=== PATIENT | female | born 2000 | race Caucasian/White ===

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

== ENCOUNTER 2019-05-07 16:23 | Emergency (ER) | payer OTHER ==
--- NOTE | 2019-05-07 16:45 | ED Physician Documentation ---
History of Present Illness - Stated complaint Stated Complaint: FEMALE /VOMITING - Chief complaint Chief Complaint: Abd Pain - History obtained from History obtained from: Patient - Additonal information Additional information: Patient is a 19-year-old female presenting with about a day of diffuse abdominal pain associated with nausea and vomiting. Patient denies fever, acid reflux- like symptoms, urinary changes, stool changes, vaginal complaints including abnormal vaginal bleeding with last menstrual period earlier this month. Patient denies previous episodes similar to such. No other improving or worsening factors noted. Review of Systems Constitutional: denies: Fever GI: reports: Abdominal Pain. 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 : None HEENT: None Psych: None, ADD/ADHD Musculoskeletal: Chronic back pain Derm: None - Past Surgical History Past Surgical History: No - Present Medications Home Medications: Ambulatory Orders Medication Instructions Recorded Confirmed Hydrocodone/Acetaminophen [[place] 1 each PO Q6H PRN #20 tablet 11/08/18 5-325 Tablet] Ibuprofen 400 mg PO PRN 11/08/18 Naproxen 500 mg PO BID #20 tablet 11/08/18 Norethindrone AC-Eth Estradiol 1 each PO DAILY #1 packet 11/08/18 [Loestrin 21 1-20 Tablet] Ondansetron Odt [Zofran] 4 mg TL Q6H PRN #10 tablet 11/08/18 Ciprofloxacin [Cipro] 500 mg PO BID 7 Days ml 05/07/19 - Allergies Allergies/Adverse Reactions: Allergies Allergy/AdvReac Type Severity Reaction Status Date / Time No Known Drug Allergies Allergy Verified 05/07/19 16:32 - Social History Does the pt smoke?: Yes Smoking Status: Current every day smoker Does the pt drink ETOH?: No Does the pt have substance abuse?: No - Immunizations Immunizations are current?: Yes - POLST Patient has POLST: No PD ED PE NORMAL - Vitals Vital signs reviewed: Yes - General General: Alert and oriented X 3, No acute distress, Well developed/nourished - HEENT HEENT: Atraumatic, Moist mucous membranes - Cardiac Cardiac: RRR, No murmur - Respiratory Respiratory: No respiratory distress, Clear bilaterally - Abdomen Abdomen: Normal bowel sounds, Soft, Non distended. No: Non tender (Diffusely tender) - Derm Derm: Normal color, Warm and dry - Extremities Extremities: No deformity, No tenderness to palpate - Neuro Neuro: Alert and oriented X 3, No motor deficit, No sensory deficit - Psych Psych: Normal affect Results - Vitals Vitals: Vital Signs - 24 hr 05/07/19 05/07/19 16:29 19:16 Temperature 36.4 C L 37.1 C Heart Rate 64 63 Respiratory 24 16 Rate Blood Pressure 114/75 95/55 L O2 Saturation 99 99 Oxygen O2 Source Room air - Labs Labs: Laboratory Tests 05/07/19 05/07/19 05/07/19 17:10 17:19 17:19 WBC 13.8 H RBC 4.83 Hgb 15.0 Hct 42.1 MCV 87.2 MCH 31.1 H MCHC 35.6 RDW 11.9 L Plt Count 195 MPV 11.3 H Neut # (Auto) 11.3 H Lymph # (Auto) 1.4 L [place] # (Auto) 0.8 Eos # (Auto) 0.1 Baso # (Auto) 0.1 Absolute Nucleated RBC 0.00 Nucleated RBC % 0.0 Sodium 140 Potassium 3.8 Chloride 105 Carbon Dioxide 23 Anion Gap 12.0 BUN 17 Creatinine 0.8 Estimated GFR (MDRD) 91 Glucose 95 Calcium 9.9 Total Bilirubin 0.4 AST 17 ALT 14 Alkaline Phosphatase 69 Total Protein 7.7 Albumin 4.8 Globulin 2.9 Albumin/Globulin Ratio 1.7 Lipase 26 Urine Color YELLOW Urine Clarity HAZY Urine pH 7.5 Ur Specific [place] 1.015 Urine Protein NEGATIVE Urine Glucose (UA) NEGATIVE Urine Ketones NEGATIVE Urine Occult Blood NEGATIVE Urine Nitrite NEGATIVE Urine Bilirubin NEGATIVE Urine Urobilinogen 0.2 (NORMAL) Ur Leukocyte Esterase TRACE H Urine RBC None Seen Urine WBC 0-3 Ur Squamous Epith Cells MANY Squamous H Urine Bacteria Many H Ur Microscopic Review INDICATED Urine Culture Comments NOT INDICATED Urine HCG, Qual NEGATIVE PD MEDICAL DECISION MAKING - ED course Complexity details: reviewed old records, reviewed results, re-evaluated patient, considered differential, d/w patient ED course: Patient presenting with diffuse abdominal pain with nausea and vomiting, although denies GERD-like symptoms. Concerning etiologies including GERD, PUD, gastritis, appendicitis, gallbladder disease, diverticulitis, small bowel obstruction, although have low suspicion for such. Also feel that renal pathology, UTI, pelvic pathology much less likely, particularly given lack of pelvic and vaginal complaints. Patient started on IV fluid as well as nausea and pain medication. Screening lab work returned relatively unremarkable except for mild leukocytosis. Urinalysis had trace leukocyte esterase, but many squamous cells and do not feel this is truly an infection, but likely contaminated sample. Patient also denying urinary symptoms and do not feel she requires in antibiotics for UTI at this time. CT abdomen/pelvis obtained which found evidence of a right adnexal cyst, as well as changes of enteritis. Feel appropriate to prescribe ciprofloxacin for enteritis. Otherwise, feel that patient can be treated as an outpatient with supportive cares, return precautions, primary care follow-up. Departure - Departure Disposition: 01 Home, Self Care Clinical Impression: Enteritis Ovarian cyst Qualifiers: Laterality: right Qualified Code(s): N83.201 - Unspecified ovarian cyst, right side Condition: Good Instructions: ED Food Poison Or Gastroenteritis, ED Cyst Ovarian Follow-Up: SONYA NICOLE DO [Primary Care Provider] - Prescriptions: Ciprofloxacin [Cipro] 500 mg PO BID 7 Days ml Comments: Recommend hydration with Powerade/Gatorade, bland diet advancing as tolerated. Ibuprofen/Tylenol as needed. Follow-up with primary care physician next 2 to 3 days. Please take antibiotics as otherwise prescribed to help treat gastroenteritis changes as found on CAT scan. Recommend taking antibiotics with small amount of food to avoid upset stomach.To ED sooner if experience worsening symptoms or have other concerns.
[2019-05-07] MEDS ORDERED: DICYCLOMINE 10 MG CAPSULE PO STA (17:01)
[2019-05-07] MEDS ORDERED: ONDANSETRON 4 MG/2 ML VIAL IVP STA (17:01)
[2019-05-07] MEDS ORDERED: SODIUM CHLORIDE 0.9% 1,000 ML IV ONE (17:01)
[2019-05-07 17:28] LABS: BASOPHILS # (AUTO) 0.1 10^3/uL (0.0-0.1); BASOPHILS % (AUTO) 0.4 %; EOSINOPHILS # (AUTO) 0.1 10^3/uL (0.0-0.7); LYMPHOCYTES # (AUTO) 1.4 10^3/uL (1.5-3.5); LYMPHOCYTES % (AUTO) 10.3 %; MEAN CORPUSCULAR HEMOGLOBIN 31.1 pg (27.0-31.0); MEAN CORPUSCULAR HGB CONC 35.6 g/dL (32.0-36.0); MEAN CORPUSCULAR VOLUME 87.2 fL (81.0-99.0); MEAN PLATELET VOLUME 11.3 fL (7.9-10.8); MONOCYTES # (AUTO) 0.8 10^3/uL (0.0-1.0); MONOCYTES % (AUTO) 5.4 %; NEUTROPHILS # (AUTO) 11.3 10^3/uL (1.5-6.6); NEUTROPHILS % (AUTO) 82.2 %; PLT - PLATELET COUNT 195 10^3/uL (130-450); RED BLOOD COUNT 4.83 10^6/uL (4.20-5.40); RED CELL DISTRIBUTION WIDTH 11.9 % (12.0-15.0); WHITE BLOOD COUNT 13.8 x10^3/uL (4.8-10.8)
[2019-05-07 17:29] LABS: BILIRUBIN,URINE NEGATIVE (NEGATIVE); GLUCOSE, URINE (UA) NEGATIVE (NEGATIVE); KETONES,URINE (UA) NEGATIVE (NEGATIVE); LEUKOCYTE ESTERASE, URINE TRACE (NEGATIVE); NITRITE,URINE NEGATIVE (NEGATIVE); OCCULT BLOOD,URINE NEGATIVE (NEGATIVE); PH,URINE 7.5 PH (5.0-7.5); PROTEIN,URINE NEGATIVE (NEGATIVE); UROBILINOGEN,URINE 0.2 (NORMAL) E.U./dL (NORMAL)
[2019-05-07 17:33] LABS: CLARITY,URINE HAZY (CLEAR); HCG UR QUAL NEGATIVE
[2019-05-07 17:38] LABS: ALBUMIN 4.8 g/dL (3.2-5.5); ALBUMIN/GLOBULIN RATIO 1.7 (1.0-2.2); BILIRUBIN,TOTAL 0.4 mg/dL (0.2-1.0); CALCIUM 9.9 mg/dL (8.5-10.3); CREATININE 0.8 mg/dL (0.4-1.0); TOTAL PROTEIN 7.7 g/dL (6.7-8.2)
[2019-05-07 17:39] LABS: BACTERIA,URINE Many /HPF (None Seen); RBC,URINE None Seen /HPF (0-5); SQUAMOUS EPITHELIAL CELL,UR MANY Squamous (<= Few)
[2019-05-07] MEDS ORDERED: IOVERSOL 320 100 ML VIAL IVP ONE ×2 (18:10→18:35)
--- NOTE | 2019-05-07 18:59 | CT Report ---
Reason: diffuse pain with nausea and vomiting Procedure Date: 05/07/2019 Accession Number: [id number] / [id number] Procedure: CT - Abdomen/Pelvis W CPT Code: FULL RESULT: EXAM: CT ABDOMEN AND PELVIS EXAM DATE: 05/07/2019 06:33 PM. CLINICAL HISTORY: Diffuse pain with nausea and vomiting. COMPARISONS: ABDOMEN/PELVIS W/ 10/14/2015 5:05 PM. TECHNIQUE: Routine helical CT imaging was performed through the abdomen and pelvis. IV contrast: OPTI 320 80 mL. Enteric contrast: No. Reconstructions: Coronal and sagittal. In accordance with CT protocol optimization, one or more of the following dose reduction techniques were utilized for this exam: automated exposure control, adjustment of mA and/or KV based on patient size, or use of iterative reconstructive technique. FINDINGS: Lung Bases: Unremarkable. Liver: Mild periportal edema. Otherwise unremarkable. Gallbladder/Bile Ducts: Unremarkable. Spleen: Normal. Pancreas: Normal. Adrenal Glands: Normal. Kidneys: No hydronephrosis or nephrolithiasis. Probable 4 mm cortical cyst in the lower pole of the left kidney. Peritoneal Cavity/Bowel: Nonobstructive bowel gas pattern. Nonspecific fluid-filled small bowel loops in the lower abdomen measuring up to 2.4 cm in diameter. These bowel loops demonstrate increased mucosal enhancement. The appendix is normal measuring up to 5.5 mm in diameter. Small volume ascites in the pelvis. No free intraperitoneal air. Pelvic Organs: There is a collapsed, rim-enhancing cyst in the right adnexa measuring 0.6 x 1.3 cm (image 24 of series 5). The left ovary is unremarkable. Uterus and urinary bladder are also unremarkable. Vasculature: No aneurysms or acute abnormality. Possible circumaortic left renal vein. Bones: No acute abnormality. Other: None. IMPRESSION: Collapsed, rim-enhancing cyst in the right adnexa, which may represent a recently ruptured hemorrhagic cyst. Small volume ascites in the pelvis. Pelvis ultrasound may further characterize if needed. Nonspecific fluid-filled, nondilated small bowel loops in the lower abdomen with increased mucosal enhancement. This could be secondary to an infectious or inflammatory enteritis. RADIA
[2019-05-07 19:17] VITALS: BP 95/55
== END 2019-05-07 19:34 | disposition home or self-care (01) ==
LOC: ED 16:23
DX: K52.9 Noninfective gastroenteritis and colitis, unspecified (principal); N83.201 Unspecified ovarian cyst, right side; F17.200 Nicotine dependence, unspecified, uncomplicated
CPT/HCPCS: 36415; 74177; 80053; 81001; 81025; 83690; 85025; 96361; 96374; 99284; A9270; Q9967; 81003; 87086

== ENCOUNTER 2019-07-13 16:28 | Emergency (ER) | payer OTHER ==
[2019-07-13 16:33] VITALS: BP 117/81
[2019-07-13] MEDS ORDERED: LORazepam 1 MG TABLET PO STA (16:49)
--- NOTE | 2019-07-13 16:51 | ED Physician Documentation ---
History of Present Illness - Stated complaint Stated Complaint: FIT FOR [facility]PC - Chief complaint Chief Complaint: General - History obtained from History obtained from: Patient, Police - History of Present Illness Timing: Today - Additonal information Additional information: 19-year-old female with a history of panic attack and anxiety has developed panic attack over the last 2 hours and she is picked up by police in the middle of a panic attack. She has been taking some buspirone without improvement in her frequency of panic attacks and has an appointment to follow-up with her primary care doctor next week. She is having some hyperventilation with numbness to her fingertips around her lips and toes as well as some pain coming across her chest. She denies recent or current illness. Review of Systems Constitutional: denies: Fever Eyes: denies: Decreased vision Ears: denies: Ear pain Nose: denies: Rhinorrhea / runny nose, Congestion Throat: denies: Sore throat Cardiac: reports: Chest pain / pressure. denies: Palpitations, Pedal edema, Calf pain Respiratory: reports: Dyspnea. denies: Cough, Hemoptysis, Wheezing GI: reports: Nausea. denies: Abdominal Pain, Vomiting : denies: Dysuria, Frequency PD PAST MEDICAL HISTORY - Past Medical History Cardiovascular: None Respiratory: None Neuro: None Endocrine/Autoimmune: None GI: None HIDE SELECTOR: None : None HEENT: None Psych: None, ADD/ADHD Musculoskeletal: Chronic back pain Derm: None - Past Surgical History Past Surgical History: No - Present Medications Home Medications: Ambulatory Orders Medication Instructions Recorded Confirmed Hydrocodone/Acetaminophen [[place] 1 each PO Q6H PRN #20 tablet 11/08/18 5-325 Tablet] Ibuprofen 400 mg PO PRN 11/08/18 Naproxen 500 mg PO BID #20 tablet 11/08/18 Norethindrone AC-Eth Estradiol 1 each PO DAILY #1 packet 11/08/18 [Loestrin 21 1-20 Tablet] Ondansetron Odt [Zofran] 4 mg TL Q6H PRN #10 tablet 11/08/18 Ciprofloxacin [Cipro] 500 mg PO BID 7 Days ml 05/07/19 Lorazepam [Ativan] 1 mg PO Q6HR PRN #14 tablet 07/13/19 - Allergies Allergies/Adverse Reactions: Allergies Allergy/AdvReac Type Severity Reaction Status Date / Time No Known Drug Allergies Allergy Verified 07/13/19 16:29 - Social History Does the pt smoke?: Yes Smoking Status: Current every day smoker Does the pt drink ETOH?: No Does the pt have substance abuse?: No - Immunizations Immunizations are current?: Yes - POLST Patient has POLST: No PD ED PE NORMAL - Vitals Vital signs reviewed: Yes (tachpneic and hypertensive mild diastolic ) - General General: Alert and oriented X 3, Well developed/nourished, Other (appears anxious and is hyperventilating ) - HEENT HEENT: Atraumatic, PERRL, EOMI, Other (both TM's are flush mucous membranes are dry) - Neck Neck: Supple, no meningeal sign, No bony TTP - Cardiac Cardiac: RRR, No murmur - Respiratory Respiratory: Other (tachypneic) - Abdomen Abdomen: Soft, Non tender - Back Back: No CVA TTP, No spinal TTP - Derm Derm: Normal color, Warm and dry, No rash - Extremities Extremities: No deformity, No edema - Neuro Neuro: Alert and oriented X 3, 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, No motor deficit, No sensory deficit, Normal speech Eye Opening: Spontaneous Motor: Obeys Commands Verbal: Oriented GCS Score: 15 - Psych Psych: Normal affect, Other (mood is anxious) Results - Vitals Vitals: Vital Signs - 24 hr 07/13/19 16:29 Temperature 37 C Heart Rate 88 Respiratory 22 Rate Blood Pressure 117/81 H O2 Saturation 98 Oxygen O2 Source Room air PD MEDICAL DECISION MAKING - ED course Complexity details: reviewed old records, considered differential, d/w patient ED course: 19-year-old female with a history of panic attacks is having anxiety here in the emergency department she is hyperventilating and she is administered Ativan 1 mg orally. She is given a fit for confinement and may need additional Ativan while she is in senior care. Departure - Departure Disposition: 01 Home, Self Care Clinical Impression: Hyperventilation syndrome Condition: Stable Instructions: ED Panic Attack Follow-Up: SONYA NICOLE DO [Primary Care Provider] - Prescriptions: Lorazepam [Ativan] 1 mg PO Q6HR PRN #14 tablet PRN Reason: anixety Discharge Date/Time: 07/13/19 16:57
== END 2019-07-13 16:57 | disposition home or self-care (01) ==
LOC: ED 16:28
DX: F45.8 Other somatoform disorders (principal); F41.0 Panic disorder [episodic paroxysmal anxiety]; F17.200 Nicotine dependence, unspecified, uncomplicated
CPT/HCPCS: 99282; 99284; J8499

== ENCOUNTER 2019-09-30 19:43 | Emergency (ER) | payer OTHER ==
[2019-09-30 20:13] LABS: BASOPHILS % (AUTO) 0.4 %; EOSINOPHILS # (AUTO) 0.2 10^3/uL (0.0-0.7); EOSINOPHILS % (AUTO) 1.8 %; LYMPHOCYTES # (AUTO) 0.9 10^3/uL (1.5-3.5); LYMPHOCYTES % (AUTO) 8.4 %; MEAN CORPUSCULAR HEMOGLOBIN 31.1 pg (27.0-31.0); MEAN CORPUSCULAR HGB CONC 34.7 g/dL (32.0-36.0); MEAN CORPUSCULAR VOLUME 89.4 fL (81.0-99.0); MEAN PLATELET VOLUME 10.4 fL (7.9-10.8); MONOCYTES # (AUTO) 0.5 10^3/uL (0.0-1.0); MONOCYTES % (AUTO) 4.4 %; NEUTROPHILS # (AUTO) 9.2 10^3/uL (1.5-6.6); NEUTROPHILS % (AUTO) 84.6 %; PLT - PLATELET COUNT 241 10^3/uL (130-450); RED BLOOD COUNT 4.83 10^6/uL (4.20-5.40); RED CELL DISTRIBUTION WIDTH 11.7 % (12.0-15.0); WHITE BLOOD COUNT 10.8 x10^3/uL (4.8-10.8)
[2019-09-30 20:23] LABS: BILIRUBIN,URINE NEGATIVE (NEGATIVE); GLUCOSE, URINE (UA) NEGATIVE (NEGATIVE); KETONES,URINE (UA) NEGATIVE (NEGATIVE); LEUKOCYTE ESTERASE, URINE NEGATIVE (NEGATIVE); NITRITE,URINE NEGATIVE (NEGATIVE); OCCULT BLOOD,URINE NEGATIVE (NEGATIVE); PH,URINE 8.5 PH (5.0-7.5); PROTEIN,URINE NEGATIVE (NEGATIVE); UROBILINOGEN,URINE 0.2 (NORMAL) E.U./dL (NORMAL)
[2019-09-30 20:26] LABS: ALBUMIN 4.5 g/dL (3.2-5.5); ALBUMIN/GLOBULIN RATIO 1.8 (1.0-2.2); BILIRUBIN,TOTAL 0.6 mg/dL (0.2-1.0); CALCIUM 8.9 mg/dL (8.5-10.3); CREATININE 0.7 mg/dL (0.4-1.0)
[2019-09-30 20:34] LABS: AMORPHOUS SEDIMENT,UR Moderate /LPF; BACTERIA,URINE None Seen /HPF (None Seen); CLARITY,URINE CLOUDY (CLEAR); HCG UR QUAL NEGATIVE; RBC,URINE None Seen /HPF (0-5); SQUAMOUS EPITHELIAL CELL,UR FEW Squamous (<= Few)
[2019-09-30] MEDS ORDERED: MORPHINE 2 MG/ML CARPUJECT IVP STA (20:48)
[2019-09-30] MEDS ORDERED: KETOROLAC 30 MG/ML VIAL IVP STA (20:48)
[2019-09-30] MEDS ORDERED: ONDANSETRON 4 MG/2 ML VIAL IVP STA (20:48)
[2019-09-30] MEDS ORDERED: SODIUM CHLORIDE 0.9% 1,000 ML IV ONE (20:48)
[2019-09-30] MEDS ORDERED: LACTATED RINGERS 1,000 ML IV STA (20:49)
--- NOTE | 2019-09-30 20:53 | ED Physician Documentation ---
PD HPI ABD PAIN - Stated complaint Stated Complaint: BACK PAIN, VOMITTING - Chief complaint Chief Complaint: Back Pain - History obtained from History obtained from: Patient, Family (mom) - History of Present Illness Timing - onset: Other (She has been ill for 3 days with vomiting, diarrhea, severe abdominal pain and right-sided back pain. No urinary complaints. No sick contacts. She had fevers on the first 2 days's which have defervesced. She also has body aches and chills. No recent travel.) Review of Systems Ten Systems: 10 systems reviewed and negative Constitutional: reports: Fever, Chills, Myalgias, Fatigue Ears: denies: Drainage/discharge Nose: denies: Rhinorrhea / runny nose Throat: denies: Sore throat Cardiac: denies: Chest pain / pressure, Palpitations GI: reports: Abdominal Pain, Nausea, Vomiting, Diarrhea. 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 : None HEENT: None Psych: None, ADD/ADHD Musculoskeletal: Chronic back pain Derm: None - Past Surgical History Past Surgical History: No - Present Medications Home Medications: Ambulatory Orders Medication Instructions Recorded Confirmed Hydrocodone/Acetaminophen [[place] 1 each PO Q6H PRN #20 tablet 11/08/18 5-325 Tablet] Ibuprofen 400 mg PO PRN 11/08/18 Naproxen 500 mg PO BID #20 tablet 11/08/18 Norethindrone AC-Eth Estradiol 1 each PO DAILY #1 packet 11/08/18 [Loestrin 21 1-20 Tablet] Ondansetron Odt [Zofran] 4 mg TL Q6H PRN #10 tablet 11/08/18 Ciprofloxacin [Cipro] 500 mg PO BID 7 Days ml 05/07/19 Lorazepam [Ativan] 1 mg PO Q6HR PRN #14 tablet 07/13/19 - Allergies Allergies/Adverse Reactions: Allergies Allergy/AdvReac Type Severity Reaction Status Date / Time No Known Drug Allergies Allergy Verified 07/13/19 16:29 - Social History Does the pt smoke?: Yes Smoking Status: Current every day smoker Does the pt drink ETOH?: No Does the pt have substance abuse?: No - Immunizations Immunizations are current?: Yes - POLST Patient has POLST: No PD ED PE NORMAL - Vitals Vital signs reviewed: Yes - General General: Alert and oriented X 3, Other (She appears uncomfortable, prefers to lay right decubitus) - HEENT HEENT: PERRL, EOMI - Neck Neck: Supple, no meningeal sign, No bony TTP - Cardiac Cardiac: RRR, No murmur - Respiratory Respiratory: No respiratory distress, Clear bilaterally - Abdomen Abdomen: Other (Significant right-sided abdominal tenderness without surgical signs; Hyperactive bowel tones) - Back Back: No CVA TTP, No spinal TTP - Derm Derm: Normal color, Warm and dry, No rash - Extremities Extremities: No edema, No calf tenderness / cord - Neuro Neuro: Alert and oriented X 3, Normal speech Results - Vitals Vitals: Vital Signs - 24 hr 09/30/19 09/30/19 09/30/19 19:51 21:00 22:52 Temperature 36.3 C L Heart Rate 76 73 59 L Respiratory 24 18 16 Rate Blood Pressure 102/68 98/66 91/57 L O2 Saturation 100 100 98 Oxygen O2 Source Room air - Labs Labs: Laboratory Tests 09/30/19 09/30/19 09/30/19 20:05 20:05 20:13 WBC 10.8 RBC 4.83 Hgb 15.0 Hct 43.2 MCV 89.4 MCH 31.1 H MCHC 34.7 RDW 11.7 L Plt Count 241 MPV 10.4 Neut # (Auto) 9.2 H Lymph # (Auto) 0.9 L [place] # (Auto) 0.5 Eos # (Auto) 0.2 Baso # (Auto) 0.0 Absolute Nucleated RBC 0.00 Nucleated RBC % 0.0 Sodium 139 Potassium 3.5 Chloride 105 Carbon Dioxide 26 Anion Gap 8.0 BUN 12 Creatinine 0.7 Estimated GFR (MDRD) 107 Glucose 101 H Calcium 8.9 Total Bilirubin 0.6 AST 16 ALT 15 Alkaline Phosphatase 64 Total Protein 7.0 Albumin 4.5 Globulin 2.5 Albumin/Globulin Ratio 1.8 Lipase 30 Urine Color LT. YELLOW Urine Clarity CLOUDY Urine pH 8.5 H Ur Specific [place] 1.015 Urine Protein NEGATIVE Urine Glucose (UA) NEGATIVE Urine Ketones NEGATIVE Urine Occult Blood NEGATIVE Urine Nitrite NEGATIVE Urine Bilirubin NEGATIVE Urine Urobilinogen 0.2 (NORMAL) Ur Leukocyte Esterase NEGATIVE Urine RBC None Seen Urine WBC 0-3 Ur Squamous Epith Cells FEW Squamous Amorphous Sediment Moderate Urine Bacteria None Seen Ur Microscopic Review INDICATED Urine Culture Comments NOT INDICATED Urine HCG, Qual NEGATIVE PD MEDICAL DECISION MAKING - ED course ED course: This young lady has a syndrome that sounds mostly viral, seated with fevers and chills and body aches and now more vomiting and diarrhea and abd pain. The abdominal pain seems out of proportion to the rest of the illness. However review of the chart and personal experience shows that she has somewhat exaggerated pain behaviors. She was administered some morphine Toradol and nausea medicine. She claims she was not feeling any better. However then after I ordered some ofirmev and Phenergan she refused to the ofirmev and refused to go to CT until she had more morphine. I discussed with her that she said she was not getting any relief from the morphine, but then she said it was better than the acetaminophen which she had not yet tried. I discussed with her that I was not willing to give her any more narcotics for what seemed like a viral syndrome until further testing was done. She agreed to go to CT but immediately on return from CT demanded to leave AGAINST MEDICAL ADVICE. I discussed with her that I would not generally discharge people without a CT read. I did not see anything obvious on the CT but it had not been reviewed by radiology and she wanted to go AGAINST MEDICAL ADVICE. 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 Departure - Departure Disposition: 07 Against Medical Advice Clinical Impression: Abdominal pain Qualifiers: Abdominal location: generalized Qualified Code(s): R10.84 - Generalized abdominal pain Condition: Stable Discharge Date/Time: 09/30/19 23:28
[2019-09-30] MEDS ORDERED: PROMETHAZINE INJ 25 MG in SODIUM CHLORIDE 0.9% 50 ML IV STA (21:52)
[2019-09-30] MEDS ORDERED: IOVERSOL 320 100 ML VIAL IVP ONE ×2 (21:52→23:17)
[2019-09-30] MEDS ORDERED: ACETAMINOPHEN 1,000 MG/100 ML 100 ML IV STA (21:52)
[2019-09-30 22:52] VITALS: BP 91/57
[2019-09-30] MEDS ORDERED: METOCLOPRAMIDE 10 MG/2 ML VIAL IVP STA (23:14)
[2019-09-30] MEDS ORDERED: ONDANSETRON ODT 4 MG Prepack 2 TL STA (23:14)
--- NOTE | 2019-09-30 23:29 | CT Report ---
Reason: IV only R abd pain Procedure Date: 09/30/2019 Accession Number: [id number] / [id number] Procedure: CT - Abdomen/Pelvis W CPT Code: Final Report FULL RESULT: EXAM: CT ABDOMEN AND PELVIS EXAM DATE:09/30/2019 11:14 PM CLINICAL HISTORY: IV only R abd pain. Nausea, vomiting, and diarrhea for 3 days. COMPARISONS: ABDOMEN/PELVIS W/ 05/07/2019 6:22 PM. TECHNIQUE: Routine helical CT imaging was performed through the abdomen and pelvis with 100 ML OPTIRAY 320 IV contrast. Oral contrast: No. Reconstructions: Coronal and sagittal. In accordance with CT protocol optimization, one or more of the following dose reduction techniques were utilized for this exam: automated exposure control, adjustment of mA and/or KV based on patient size, or use of iterative reconstructive technique. FINDINGS: Lung Bases: Clear lung bases. No pleural effusion. Liver: Normal. Gallbladder/Bile Ducts: Normal. Spleen: Normal. Pancreas: Normal. Adrenal Glands: Normal. Kidneys: Normal. No hydronephrosis. Stable 5 mm left inferior pole low-density lesion, which may reflect a cyst. Peritoneal Cavity/Bowel: Normal contour and caliber of the bowel. No free fluid, free air or lymphadenopathy. The appendix is not visualized; however, no inflammatory changes at the base of the cecum. Pelvic Organs: Normal. The bladder and visualized pelvic organs appear normal. Trace amount of physiologic free fluid in the deep pelvis. Vasculature: Normal. Bones: Normal. Other: None. IMPRESSION: Normal CT examination of the abdomen and pelvis. No acute process seen in the abdomen or pelvis. RADIA
== END 2019-09-30 23:28 | disposition left against medical advice (07) ==
LOC: ED 19:43
DX: R10.84 Generalized abdominal pain (principal); R11.2 Nausea with vomiting, unspecified; R19.7 Diarrhea, unspecified; F17.200 Nicotine dependence, unspecified, uncomplicated; Z53.20 Procedure and treatment not carried out because of patient's decision for unspecified reasons
CPT/HCPCS: 36415; 74177; 80053; 81001; 81025; 83690; 85025; 96361; 96365; 96368; 96375; 99284; 99285; J0131; J2765; J7040; J7120; Q9967; 81003; 87086

== ENCOUNTER 2020-09-21 11:14 | Emergency (ER) | payer SELFPAY ==
[2020-09-21 11:20] VITALS: BP 130/86
[2020-09-21] MEDS ORDERED: cephALEXin 250 MG CAPSULE PO STA (11:38)
[2020-09-21] MEDS ORDERED: IBUPROFEN 600 MG TABLET PO STA (11:38)
[2020-09-21] MEDS ORDERED: SULFAMETH/TRIMETH DS 800/160 MG TABLET PO STA (11:38)
--- NOTE | 2020-09-21 11:41 | ED Physician Documentation ---
History of Present Illness - Stated complaint Stated Complaint: JAW PX - Chief complaint Chief Complaint: Wound - History obtained from History obtained from: Patient - History of Present Illness Timing: How many days ago (2) Pain level max: 5 Pain level now: 4 - Additonal information Additional information: 20-year-old female presents to the emergency department stating that she had a pustule on her chin that she tried to express. She states now her chin is red and swollen. Nothing makes it better or worse. No fevers. No difficulty eating or swallowing. 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 : None HEENT: None Psych: None, ADD/ADHD Musculoskeletal: Chronic back pain Derm: None - Past Surgical History Past Surgical History: No - Present Medications Home Medications: Ambulatory Orders Medication Instructions Recorded Confirmed Cephalexin [Keflex] 500 mg PO Q6H #28 capsule 09/21/20 Sulfamethox/Trimeth 800/160 1 each PO BID #14 tablet 09/21/20 [Bactrim Ds 800/160] - Allergies Allergies/Adverse Reactions: Allergies Allergy/AdvReac Type Severity Reaction Status Date / Time No Known Drug Allergies Allergy Verified 09/21/20 11:20 - Social History Does the pt smoke?: Yes Smoking Status: Current every day smoker Does the pt drink ETOH?: No Does the pt have substance abuse?: No - Immunizations Immunizations are current?: Yes - POLST Patient has POLST: No PD ED PE NORMAL - Vitals Vital signs reviewed: Yes - General General: Alert and oriented X 3, No acute distress - HEENT HEENT: Moist mucous membranes, Other (erythema to the chin, mild swelling, no fluctuance. no drainage. ) - Neck Neck: Supple, no meningeal sign - Derm Derm: Warm and dry - Neuro Neuro: Alert and oriented X 3 - Psych Psych: Normal mood, Normal affect Results - Vitals Vitals: Vital Signs - 24 hr 09/21/20 11:19 Temperature 36.0 C L Heart Rate 111 H Respiratory 20 Rate Blood Pressure 130/86 H O2 Saturation 100 Oxygen O2 Source Room air PD MEDICAL DECISION MAKING - ED course Complexity details: considered differential, d/w patient ED course: Patient with what appears to be cellulitis of the chin. No drainable abscess. We will place her on antibiotics and have her follow-up closely with her doctor for further care. No crepitus. No spread down the neck. Patient counseled regarding signs and symptoms for which I believe and urgent re-evaluation would be necessary. Patient with good understanding of and agreement to plan and is comfortable going home at this time This document was made in part using voice recognition software. While efforts are made to proofread this document, sound alike and grammatical errors may occur. Departure - Departure Disposition: Home, Self Care Clinical Impression: Facial cellulitis Condition: Good Instructions: ED Cellulitis Facial Follow-Up: your,doctor in 3 days for recheck [Other] Prescriptions: Sulfamethox/Trimeth 800/160 [Bactrim Ds 800/160] 1 each PO BID #14 tablet Cephalexin [Keflex] 500 mg PO Q6H #28 capsule Comments: Use the antibiotics as prescribed. You can use Motrin or Tylenol as needed for pain. Return if you worsen. Discharge Date/Time: 09/21/20 11:51
== END 2020-09-21 11:51 | disposition home or self-care (01) ==
LOC: ED 11:14
DX: L03.211 Cellulitis of face (principal); F17.200 Nicotine dependence, unspecified, uncomplicated
CPT/HCPCS: 99282; 99284; A9270

== ENCOUNTER 2020-09-23 14:00 | Emergency (ER) | payer SELFPAY ==
[2020-09-23 14:12] VITALS: BP 119/62
--- NOTE | 2020-09-23 14:40 | ED Physician Documentation ---
History of Present Illness - Stated complaint Stated Complaint: LIGHTHEADED/HAND SWELLING - Chief complaint Chief Complaint: General - History obtained from History obtained from: Patient - Additonal information Additional information: Seen here 2 Days ago for facial cellulitis on the chin. She was put on Bactrim and Keflex. It has not really gotten better, but it has not gotten worse either. Just is sort of lingering. She also complains of pain from the last maxillary molar. No fevers. 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 09/23/20 - Allergies Allergies/Adverse Reactions: Allergies Allergy/AdvReac Type Severity Reaction Status Date / Time No Known Drug Allergies Allergy Verified 09/23/20 14:09 - Social History Does the pt smoke?: Yes Smoking Status: Current every day smoker Does the pt drink ETOH?: No Does the pt have substance abuse?: No - Immunizations Immunizations are current?: Yes - POLST Patient has POLST: No PD ED PE NORMAL - Vitals Vital signs reviewed: Yes - General General: Alert and oriented X 3 - HEENT HEENT: Other (She has assertive impetiginous cellulitis that is weeping to the central chin. No fluctuance or abscess. She has generally poor dentition, no obvious active dental infection, no trismus or sublingual edema.) - Neuro Neuro: Alert and oriented X 3, Normal speech Results - Vitals Vitals: Vital Signs - 24 hr 09/23/20 14:09 Temperature 36.9 C Heart Rate 100 Respiratory 16 Rate Blood Pressure 119/62 O2 Saturation 99 Oxygen O2 Source Room air Departure - Departure Disposition: 01 Home, Self Care Clinical Impression: Facial cellulitis, Dental infection Condition: Good Record reviewed to determine appropriate education?: Yes Instructions: ED Cellulitis Facial, Dental Abscess Prescriptions: Clindamycin [Cleocin] 300 mg PO Q6H 10 Days capsule Mupirocin Calcium [Mupirocin] 1 gm TP TID #2 cream..g. HYDROcod/ACETAM 5/325 [[place] 5/325] 1 - 2 tab PO Q6H PRN #10 tablet PRN Reason: Pain Comments: I would change the antibiotic from what Dr. Smith gave you the other day since it does not seem to be working. Follow-up with your primary care physician in the next couple of days for recheck. Also add the topical antibiotic. It is very important that you follow-up with a dentist. When it comes to dental problems like yours, the emergency department can only offer a short-term solution to your long-term problem. A couple of low cost options for dental care include: [facility] in [place], calls [phone] for an appointment Or [facility] in [place], call [phone] for an appointment.
== END 2020-09-23 14:49 | disposition home or self-care (01) ==
LOC: ED 14:00
DX: L03.211 Cellulitis of face (principal); K04.7 Periapical abscess without sinus; F17.200 Nicotine dependence, unspecified, uncomplicated
CPT/HCPCS: 99283

== ENCOUNTER 2020-12-20 11:56 | Emergency (ER) | payer SELFPAY ==
[2020-12-20] MEDS ORDERED: LIDOCAINE VISCOUS 2% 15 ML UDC MM STA (12:18)
[2020-12-20] MEDS ORDERED: MAG HYDROX/AL HYDROX/SIMETH 30 ML UDC PO STA (12:21)
--- NOTE | 2020-12-20 12:31 | ED Physician Documentation ---
History of Present Illness - Stated complaint Stated Complaint: CHEST PX/ L ARM PX - Chief complaint Chief Complaint: Cardiac - Additonal information Additional information: 20-year-old female presents emergency department for evaluation of 2 days left- sided chest pain with radiation to the arm. Reports that sometimes the chest pain is exertional and hurts when she takes a deep breath. No fevers no nausea or vomiting. Denies abdominal pain diarrhea dysuria.Pt reports taht the pain is sharp and feels pressure like. Daily tobacco user. Denies family history of coronary artery disease. She is not taking OCP. No recent travel or unilateral leg swelling. No personal history of DVT or cancer. Patient denies alcohol and injection drug use. Review of Systems Constitutional: denies: Fever, Chills Eyes: reports: Reviewed and negative Ears: reports: Reviewed and negative Nose: reports: Reviewed and negative Throat: reports: Reviewed and negative Cardiac: reports: Chest pain / pressure. 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 09/23/20 Ibuprofen [Motrin] 600 mg PO Q6H PRN #30 tab 12/20/20 - Allergies Allergies/Adverse Reactions: Allergies Allergy/AdvReac Type Severity Reaction Status Date / Time No Known Drug Allergies Allergy Verified 09/23/20 14:09 - Social History Does the pt smoke?: Yes Smoking Status: Current every day smoker Does the pt drink ETOH?: No Does the pt have substance abuse?: No - Immunizations Immunizations are current?: Yes - POLST Patient has POLST: No PD ED PE EXPANDED - General General: Alert, In Pain, Other (thin female) - Neck Neck: Supple w/out meningeal sx, No tenderness. No: Adenopathy - Cardiac Cardiac: Tachy, Radial strong equal, Pedal strong equal, Cap refill < 2 sec. No: Murmur Present - Respiratory Respiratory: Clear to ausultation angelia. No: Distress, Labored - Abdomen Abdomen: Normal Bowel sounds, Tender to palpation (epigastrium) - Back Back: Normal exam. No: Vertebral tenderness, Soft tissue tenderness, CVA TTP right, CVA TTP left - Derm Derm: Normal color, Warm and dry. No: Rash, Petecchiae, Purpura - Extremities Extremities: Normal. No: Deformity, Tenderness, Pedal edema bilateral, Right calf TTP/cord, Left calf TTP/cord - Neuro Neuro: Alert and Oriented X 3, CNII-XII intact, Normal gait, Normal finger nose, Normal speech - GCS Eye Opening: Spontaneous Motor: Obeys Commands Verbal: Oriented Total: 15 Results - Vitals Vitals: Vital Signs - 24 hr 12/20/20 11:59 Temperature 36.3 C L Heart Rate 107 H Respiratory 14 Rate Blood Pressure 107/72 O2 Saturation 98 Oxygen O2 Source Room air - EKG (time done) 1201 Rate: Rate (enter#) (111) Rhythm: Sinus tachycardia [place]: Normal Intervals: Normal DC. No: Prolonged QT QRS: Normal Ischemia: Non specific changes (t wave flattening) Compare to prior EKG: Changed from prior EKG Computer interpretation: Agree with computer - Labs Labs: Laboratory Tests 12/20/20 12/20/20 12/20/20 12:35 12:35 12:35 WBC 6.7 RBC 5.23 Hgb 16.1 H Hct 45.5 MCV 87.0 MCH 30.8 MCHC 35.4 RDW 11.8 L Plt Count 261 MPV 10.8 Neut # (Auto) 3.6 Lymph # (Auto) 2.1 Russell # (Auto) 0.4 Eos # (Auto) 0.6 Baso # (Auto) 0.0 Absolute Nucleated RBC 0.00 Nucleated RBC % 0.0 D-Dimer Sodium 140 Potassium 3.5 Chloride 105 Carbon Dioxide 25 Anion Gap 10.0 BUN 14 Creatinine 0.8 Estimated GFR (MDRD) 91 Glucose 104 H Calcium 9.5 Total Bilirubin 0.3 AST 15 ALT 14 Alkaline Phosphatase 77 Troponin I High Sens < 2.3 L Total Protein 6.9 Albumin 4.6 Globulin 2.3 Albumin/Globulin Ratio 2.0 Lipase 25 12/20/20 12:35 WBC RBC Hgb Hct MCV MCH MCHC RDW Plt Count MPV Neut # (Auto) Lymph # (Auto) Russell # (Auto) Eos # (Auto) Baso # (Auto) Absolute Nucleated RBC Nucleated RBC % D-Dimer < 200.0 L Sodium Potassium Chloride Carbon Dioxide Anion Gap BUN Creatinine Estimated GFR (MDRD) Glucose Calcium Total Bilirubin AST ALT Alkaline Phosphatase Troponin I High Sens Total Protein Albumin Globulin Albumin/Globulin Ratio Lipase PD MEDICAL DECISION MAKING - ED course Complexity details: reviewed results, re-evaluated patient, considered differential ED course: 20-year-old female presented to the emergency department for evaluation of left- sided chest pain with radiation to the arm. It was both reproducible on exam as well as pleuritic. No recent cough cold congestion or fevers. EKG nonischemic though mildly tachycardic with a rate of 110. By Wells criteria she is considered low risk for a PE. Her D-dimer is negative. High-sensitivity troponin also negative. Patient was given lidocaine and Maalox here in the emergency department as well as a small dose of Dilaudid. At this time she is requesting to be discharged from the emergency department. I have advised close follow-up with her primary care provider for further evaluation and emergent return precautions discussed for fevers, syncope shortness of breath or wors ening symptoms. Departure - Departure Disposition: Home, Self Care Clinical Impression: Chest pain Qualifiers: Chest pain type: chest pain on breathing Qualified Code(s): R07.1 - Chest pain on breathing; R07.81 - Pleurodynia Condition: Stable Record reviewed to determine appropriate education?: Yes Instructions: ED Chest Pain Noncardiac Ch Prescriptions: Ibuprofen [Motrin] 600 mg PO Q6H PRN #30 tab PRN Reason: Pain Comments: Andie you are seen in the ER today for chest pain. Your EKG is normal for your age. Chest x-ray is also normal. The screening labs do not show any abnormality. Specifically the labs that would indicate if you are having a heart attack or at risk for blood clot in your chest. I do recommend that you take the ibuprofen for chest discomfort. Please schedule follow-up with your primary care provider. Return to the emergency department if your chest pain is worsening, you cannot catch her breath or have any fainting episodes
[2020-12-20 12:43] LABS: BASOPHILS % (AUTO) 0.6 %; EOSINOPHILS # (AUTO) 0.6 10^3/uL (0.0-0.7); EOSINOPHILS % (AUTO) 8.3 %; HCT - HEMATOCRIT 45.5 % (37.0-47.0); HGB - HEMOGLOBIN 16.1 g/dL (12.0-16.0); LYMPHOCYTES # (AUTO) 2.1 10^3/uL (1.5-3.5); LYMPHOCYTES % (AUTO) 31.1 %; MEAN CORPUSCULAR HEMOGLOBIN 30.8 pg (27.0-31.0); MEAN CORPUSCULAR HGB CONC 35.4 g/dL (32.0-36.0); MEAN PLATELET VOLUME 10.8 fL (7.9-10.8); MONOCYTES # (AUTO) 0.4 10^3/uL (0.0-1.0); MONOCYTES % (AUTO) 5.6 %; NEUTROPHILS # (AUTO) 3.6 10^3/uL (1.5-6.6); NEUTROPHILS % (AUTO) 54.1 %; PLT - PLATELET COUNT 261 10^3/uL (130-450); RED BLOOD COUNT 5.23 10^6/uL (4.20-5.40); RED CELL DISTRIBUTION WIDTH 11.8 % (12.0-15.0); WHITE BLOOD COUNT 6.7 x10^3/uL (4.8-10.8)
[2020-12-20] MEDS ORDERED: HYDROmorphone 1 MG/ML CARPUJECT IM STA (13:00)
[2020-12-20 13:03] LABS: ALBUMIN 4.6 g/dL (3.2-5.5); BILIRUBIN,TOTAL 0.3 mg/dL (0.2-1.0); CALCIUM 9.5 mg/dL (8.5-10.3); CREATININE 0.8 mg/dL (0.4-1.0); POTASSIUM 3.5 mmol/L (3.5-5.0); TOTAL PROTEIN 6.9 g/dL (6.7-8.2)
--- NOTE | 2020-12-20 13:12 | XRAY Report ---
PROCEDURE: Chest 1 View X-Ray INDICATIONS: Chest Pain TECHNIQUE: One view of the chest was acquired. COMPARISON: 02/02/2018 chest radiographs FINDINGS: Surgical changes and devices: None. Lungs and pleura: No pleural effusions or pneumothorax. Lungs are clear. Mediastinum: Mediastinal contours appear normal. Heart size is normal. Bones and chest wall: No suspicious bony lesions. Overlying soft tissues appear unremarkable. IMPRESSION: No acute cardiopulmonary process demonstrated radiographically. Reviewed by: Juan Mckinley MD on 12/20/2020 1:11 PM PST Approved by: Juan Mckinley MD on 12/20/2020 1:11 PM [facility] Station ID: [id number]
[2020-12-20 13:30] VITALS: BP 112/79
== END 2020-12-20 13:43 | disposition home or self-care (01) ==
LOC: ED 11:56
DX: R07.1 Chest pain on breathing (principal); R07.81 Pleurodynia; R00.0 Tachycardia, unspecified; R10.816 Epigastric abdominal tenderness; F17.200 Nicotine dependence, unspecified, uncomplicated
CPT/HCPCS: 36415; 71045; 80053; 83690; 84484; 85025; 85379; 93005; 96372; 99284; A9270; J1170

== ENCOUNTER 2021-05-06 16:38 | Outpatient (CLI) | payer MEDICAID | END 2021-05-06 16:39 | disposition critical access hospital (66) | LOC: EMS 16:38 | DX: Z04.1 Encounter for examination and observation following transport accident (principal); M54.2 Cervicalgia | CPT/HCPCS: A0425; A0429; A0999 ==

== ENCOUNTER 2021-05-06 17:02 | Emergency (ER) | payer MEDICAID ==
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
[2021-05-06 17:09] VITALS: BP 106/78
[2021-05-06] MEDS ORDERED: IBUPROFEN 600 MG TABLET PO STA (17:14)
[2021-05-06] MEDS ORDERED: ACETAMINOPHEN 325 MG TABLET PO STA (17:14)
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
== END 2021-05-06 18:52 | disposition home or self-care (01) ==
LOC: EDUNIT# → ED 17:02
DX: S16.1XXA Strain of muscle, fascia and tendon at neck level, initial encounter (principal); S00.83XA Contusion of other part of head, initial encounter; V43.52XA Car driver injured in collision with other type car in traffic accident, initial encounter; Y93.89 Activity, other specified; Y92.410 Unspecified street and highway as the place of occurrence of the external cause; F17.200 Nicotine dependence, unspecified, uncomplicated
CPT/HCPCS: 70450; 72125; 99284; A9270

== ENCOUNTER 2021-10-22 17:19 | Emergency (ER) | payer BC, MEDICAID ==
[2021-10-22] MEDS ORDERED: diphenhydrAMINE INJ 50 MG/ML VIAL IVP STA (18:01)
[2021-10-22] MEDS ORDERED: PROCHLORPERAZINE 10 MG/2 ML VIAL IVP STA (18:01)
[2021-10-22] MEDS ORDERED: SODIUM CHLORIDE 0.9% 1,000 ML IV STA (18:01)
--- NOTE | 2021-10-22 18:33 | ED Physician Documentation ---
History of Present Illness - Stated complaint Stated Complaint: HEADACHE - Chief complaint Chief Complaint: Neuro - Additonal information Additional information: 21-year-old female presents emergency department for evaluation of a headache th at began yesterday evening. She has light and noise sensitivity. Some nausea but no vomiting. Reports that she has been unable to sleep. She does report a history of headaches but is unsure if she has migraines. Typically she will take Tylenol or ibuprofen. Occasionally she can take a leftover Vicodin. Doing that today has not improved her symptoms. She does present with a low-grade fever of 38.1. Patient is not vaccinated for COVID-19. She does endorse heavy tobacco use up to 1 pack/day. On presentation she appears as though she does not feel well with a headache and is tachycardic. However in review of previous ER visits it should be noted that she is generally tachycardic with HR in the 130's. pt denies CP and SOA. no nuchal rigidity Review of Systems Constitutional: reports: Fever, Myalgias, Fatigue Eyes: reports: Photophobia Ears: reports: Reviewed and negative Nose: reports: Congestion Throat: reports: Reviewed and negative Cardiac: denies: Chest pain / pressure, Palpitations Respiratory: denies: Dyspnea, Cough GI: reports: Nausea. 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 HEENT: None Psych: ADD/ADHD Musculoskeletal: Chronic back pain Derm: None - Past Surgical History Past Surgical History: No - Present Medications Home Medications: Ambulatory Orders Medication Instructions Recorded Confirmed No Known Home Medications 10/22/21 10/22/21 - Allergies Allergies/Adverse Reactions: Allergies Allergy/AdvReac Type Severity Reaction Status Date / Time No Known Drug Allergies Allergy Verified 10/22/21 17:40 - Social History Does the pt smoke?: Yes Smoking Status: Current every day smoker Does the pt drink ETOH?: No Does the pt have substance abuse?: Yes Substance Use and Type: Marijuana - Immunizations Immunizations are current?: Yes - POLST Patient has POLST: No PD ED PE NORMAL - General General: Alert and oriented X 3 - HEENT HEENT: EOMI, Moist mucous membranes, Pharynx benign, Other (negative brudinski's; negative kernigs) - Neck Neck: Supple, no meningeal sign. No: Thyroid normal - Cardiac Cardiac: RRR (tachycardic), No murmur, No gallop - Respiratory Respiratory: No respiratory distress, Clear bilaterally - Abdomen Abdomen: Normal bowel sounds, Soft, Non tender - Back Back: No CVA TTP, No spinal TTP - Derm Derm: Normal color, Warm and dry, No rash - Extremities Extremities: No deformity - Neuro Neuro: Alert and oriented X 3 Eye Opening: Spontaneous Motor: Obeys Commands Verbal: Oriented GCS Score: 15 Results - Vitals Vitals: Vital Signs - 24 hr 10/22/21 10/22/21 10/22/21 17:34 17:54 19:00 Temperature 37.4 C 38.1 C H 37.5 C Heart Rate 131 H 112 H 101 H Respiratory 16 18 22 Rate Blood Pressure 103/69 114/77 107/78 O2 Saturation 98 95 99 10/22/21 10/22/21 19:11 19:24 Temperature Heart Rate 100 Respiratory 19 16 Rate Blood Pressure 107/86 H O2 Saturation 100 Oxygen O2 Source Room air - Labs Labs: Laboratory Tests 10/22/21 18:15 Urine Color YELLOW Urine Clarity HAZY Urine pH 6.0 Ur Specific Palm >=1.030 H Urine Protein TRACE Urine Glucose (UA) NEGATIVE Urine Ketones NEGATIVE Urine Occult Blood NEGATIVE Urine Nitrite NEGATIVE Urine Bilirubin NEGATIVE Urine Urobilinogen 0.2 (NORMAL) Ur Leukocyte Esterase NEGATIVE Urine RBC 0-5 Urine WBC 4-5 Ur Squamous Epith Cells MANY Squamous H Urine Bacteria Moderate H Urine Mucus Moderate Strands Ur Microscopic Review INDICATED Urine Culture Comments NOT INDICATED Urine HCG, Qual NEGATIVE PD MEDICAL DECISION MAKING - ED course Complexity details: reviewed results, re-evaluated patient, considered differential, d/w patient ED course: This is a 21-year-old female who presents the emergency department for evaluation of headache that began yesterday. She has had some nausea but no vomiting. Denies abdominal pain dysuria. She has not yet vaccinated for COVID-19. She does get headaches frequently. This was not sudden onset. On exam she did have a mild fever but she has not yet vaccinated for COVID-19. A Covid test is pending. She however did not present with any nuchal rigidity and she had a normal neurological exam. Patient was given a liter of IV fluids as well as Compazine and Benadryl with good improvement in her headache. Her urine is not consistent with acute cystitis. Will defer antibiotics unless her culture is pertinently positive. Should be noted that the patient does smoke 1 pack/day And has a very thin frame. She did initially present as tachycardic with a heart rate in the 130s. After analgesia for the headache and fluids her heart rate was down to closer to 100. I suspect that she constantly has catecholamine surge given her excessive tobacco use. She was cautioned against this moving forward. Patient is advised to remain in quarantine until her COVID-19 results are known. Emergent return precautions were otherwise discussed. Departure - Departure Disposition: Home, Self Care Clinical Impression: Tachycardia, Tobacco abuse Headache Qualifiers: Headache type: unspecified Headache chronicity pattern: acute headache Intractability: not intractable Qualified Code(s): R51.9 - Headache, unspecified Condition: Stable Record reviewed to determine appropriate education?: Yes Instructions: ED Cephalgia Unspecified Comments: Andie you are seen in the emergency department today for headache. You do get headaches frequently. We did give you IV fluids, Compazine and Benadryl which seems to have improved the headache. Would like you to drink lots of fluids at home and get plenty of rest. I suspect that when you wake up in the morning you will feel better. You do have a COVID-19 test pending. I do recommend that you receive the Covid vaccine as soon as you are able. If your test is positive you can receive the vaccine 90 days after a positive Covid test. You were noted to be tachycardic when you came into the emergency department. This means your heart rate was excessively high. The last few ER visits you have had an elevated heart rate. I suspect that this is in part due to the amount of tobacco you consume daily. A pack of tobacco per day on a small frame such as yours is quite excessive. I recommend that you stop tobacco or nicotine moving forward. If at any point you find that your headaches worsen, you have uncontrolled vomiting, chest pain, shortness of air, slurred speech or feel that your symptoms are not improving then please return immediately to the ER for second evaluation. You have a Covid test pending. You need to self quarantine until the result is done and negative. Do not leave your house. Do not get near anybody. The results should be done in 48 to 72 hours. We will call with a positive result, the fastest way to get a negative result for confirmation though is to go to the hospital website at [email or web address], click on the my [facility] tab and sign up for the patient portal. If any friends or family get sick and would like to have a Covid test done, but do not have signs or symptoms that would necessitate being hospitalized, there are multiple local options for Covid testing. [facility] keeps an updated list of testing and vaccination options at [email or web address]
[2021-10-22 18:34] LABS: GLUCOSE, URINE (UA) NEGATIVE (NEGATIVE); KETONES,URINE (UA) NEGATIVE (NEGATIVE); LEUKOCYTE ESTERASE, URINE NEGATIVE (NEGATIVE); NITRITE,URINE NEGATIVE (NEGATIVE); OCCULT BLOOD,URINE NEGATIVE (NEGATIVE); PROTEIN,URINE TRACE mg/dL (NEGATIVE); UROBILINOGEN,URINE 0.2 (NORMAL) E.U./dL (NORMAL)
[2021-10-22 18:38] LABS: BILIRUBIN,URINE NEGATIVE (NEGATIVE); CLARITY,URINE HAZY (CLEAR); ICTOTEST,URINE NEGATIVE
[2021-10-22 18:39] LABS: HCG UR QUAL NEGATIVE
[2021-10-22 18:53] LABS: RBC,URINE 0-5 /HPF (0-5); SQUAMOUS EPITHELIAL CELL,UR MANY Squamous (<= Few)
[2021-10-22 18:54] LABS: BACTERIA,URINE Moderate /HPF (None Seen); MUCUS,URINE Moderate Strands
[2021-10-22 19:53] VITALS: BP 110/76
== END 2021-10-22 19:55 | disposition home or self-care (01) ==
LOC: ED 17:19
DX: U07.1 COVID-19 (principal); R00.0 Tachycardia, unspecified; F17.200 Nicotine dependence, unspecified, uncomplicated
CPT/HCPCS: 81001; 81025; 87635; 96374; 96375; 99283; J1200; 81003; 87086

== ENCOUNTER 2022-03-26 17:17 | Emergency (ER) | payer MEDICAID | END 2022-03-26 19:00 | disposition left against medical advice (07) | LOC: ED 17:17 | DX: Z53.21 Procedure and treatment not carried out due to patient leaving prior to being seen by health care provider (principal) ==

== ENCOUNTER 2022-04-17 21:27 | Emergency (ER) | payer MEDICAID ==
[2022-04-17 21:47] VITALS: BP 112/72
--- OUTSIDE RECORDS SUMMARY | 2022-04-17 21:50 | EXTERNAL MEDICAL SUMMARY RPT | Continuity of Care Document ---
:2000 Author Organization [facility] Address [address] [place] [address] Phone Allergies and Intolerances date description facility type (no date) No Known Drug Allergies [facility] (unkn own) Encounters No information. Functional Status No information. Immunizations No information. Medications date description facility +0000 Penicillin V Potassium 500 MG Oral Tab let [facility] Problems No information. Procedures date description facility +0000 General Physician [facility] Results/Labs test date author facility value unit interpret ation Result panel 1 (unknown) (no date) (unknown) (unknown) Negative (units (unkn own) unknown) Result panel 2 (unknown) (no (unknown) (unknown) (no value) (units (unk nown) date) unknown) (unknown) (no (unknown) (unknown) (no value) (units (unk nown) date) unknown) (unknown) (no (unknown) (unknown) Date of Service: (units (unknown) date) 03/27/22 unknown) (unknown) (no (unknown) (unknown) (no value) (units (unk nown) date) unknown) (unknown) (no (unknown) (unknown) Allergies (units (unkn own) date) unknown) (unknown) (no (unknown) (unknown) ED Orders (units (unkn own) date) unknown) (unknown) (no (unknown) (unknown) Emergency Report (units (unknown) date) unknown) (unknown) (no (unknown) (unknown) [facility] (units (unknown) date) [address] unknown) [place] [address] (unknown) (no (unknown) (unknown) Lab Results (units (un known) date) unknown) (unknown) (no (unknown) (unknown) Point of Care (units ( unknown) date) Testing unknown) (unknown) (no (unknown) (unknown) Stop: 03/27/22 (units (unknown) date) 14:10 unknown) (unknown) (no (unknown) (unknown) Vital Signs - 8 hr (units (unknown) date) unknown) (unknown) (no (unknown) (unknown) (no value) (units (unk nown) date) unknown) (unknown) (no (unknown) (unknown) 03/27/22 (units (unkno wn) date) Range/Units unknown) (unknown) (no (unknown) (unknown) 12:51 (units (unkno wn) date) unknown) (unknown) (no (unknown) (unknown) 03/27/22 (units (unkno wn) date) unknown) (unknown) (no (unknown) (unknown) 03/27/22 12:51 (units (unknown) date) unknown) (unknown) (no (unknown) (unknown) 12:49 03/27/22 (units (unknown) date) unknown) (unknown) (no (unknown) (unknown) 13:58 (units (unkno wn) date) unknown) (unknown) (no (unknown) (unknown) Acetaminophen (units ( unknown) date) (Acetaminophen 325 unknown) Mg Tablet) 975 mg PO NOW ONE (unknown) (no (unknown) (unknown) Age/Sex: 22 / F (units (unknown) date) unknown) (unknown) (no (unknown) (unknown) Allergic/Immunolog (units (unknown) date) ic unknown) (unknown) (no (unknown) (unknown) Allergic/Immunolog (units (unknown) date) ic: Denies tongue unknown) swelling (unknown) (no (unknown) (unknown) Allergy/AdvReac (units (unknown) date) Type Severity unknown) Reaction Status Date / Time (unknown) (no (unknown) (unknown) BACK: Nontender (units (unknown) date) without deformity unknown) or crepitance. No flank tenderness. (unknown) (no (unknown) (unknown) Blood Pressure (units (unknown) date) 111/69 03/27/22 unknown) 12:49 (unknown) (no (unknown) (unknown) Blood Pressure (units (unknown) date) 117/70 unknown) (unknown) (no (unknown) (unknown) CARDIOVASCULAR: (units (unknown) date) Regular rate and unknown) rhythm without murmurs, gallops, or rubs. (unknown) (no (unknown) (unknown) COVID19 -Nasal (units (unknown) date) RAPID/Pre-Proc Stat unknown) (unknown) (no (unknown) (unknown) Cardiovascular (units (unknown) date) unknown) (unknown) (no (unknown) (unknown) Cardiovascular: (units (unknown) date) Denies chest pain, unknown) Denies irregular heart rhythm, Denies (unknown) (no (unknown) (unknown) Chief Complaint: (units (unknown) date) Upper Respiratory unknown) Symptoms (unknown) (no (unknown) (unknown) Constitutional (units (unknown) date) unknown) (unknown) (no (unknown) (unknown) Constitutional: (units (unknown) date) Denies chills, unknown) Denies fatigue, Denies fever(s), Denies frequent (unknown) (no (unknown) (unknown) Course (units (unkno wn) date) unknown) (unknown) (no (unknown) (unknown) : 2000 (units (unknown) date) Acct:[id number] unknown) (unknown) (no (unknown) (unknown) Departure (units (unkn own) date) unknown) (unknown) (no (unknown) (unknown) Discharge Plan (units (unknown) date) unknown) (unknown) (no (unknown) (unknown) ENT (units (unkno wn) date) unknown) (unknown) (no (unknown) (unknown) ENT: Nose without (units (unknown) date) bleeding, purulent unknown) drainage. Airway patent. Pharyngeal and (unknown) (no (unknown) (unknown) ER Physician: (units ( unknown) date) Kaden Fuentes unknown) P.A-C (unknown) (no (unknown) (unknown) EXTREMITIES: No (units (unknown) date) edema or joint unknown) tenderness. (unknown) (no (unknown) (unknown) EYES: Pupils equal (units (unknown) date) round and reactive. unknown) Extraocular motions intact. No scleral (unknown) (no (unknown) (unknown) Ears, Nose, Mouth, (units (unknown) date) and Throat: Denies unknown) change in voice, Denies dizziness, Denies (unknown) (no (unknown) (unknown) Endocrine (units (unkn own) date) unknown) (unknown) (no (unknown) (unknown) Endocrine: Denies (units (unknown) date) fatigue and Denies unknown) palpitations (unknown) (no (unknown) (unknown) Exam (units (unkno wn) date) unknown) (unknown) (no (unknown) (unknown) Exam Narrative: (units (unknown) date) unknown) (unknown) (no (unknown) (unknown) GASTROINTESTINAL: (units (unknown) date) Abdomen soft, unknown) non-tender, nondistended. (unknown) (no (unknown) (unknown) GENERAL: 22 year (units (unknown) date) old patient appears unknown) stated age. Well-developed patient, in mild (unknown) (no (unknown) (unknown) Gastrointestinal (units (unknown) date) unknown) (unknown) (no (unknown) (unknown) Gastrointestinal: (units (unknown) date) Denies abdominal unknown) pain, Denies change in bowel habits, Denies (unknown) (no (unknown) (unknown) General (units (unkno wn) date) unknown) (unknown) (no (unknown) (unknown) Genitourinary (units ( unknown) date) unknown) (unknown) (no (unknown) (unknown) Genitourinary: (units (unknown) date) Denies hematuria, unknown) Denies flank pain, Denies urinary incontinence (unknown) (no (unknown) (unknown) HEAD: Atraumatic. (units (unknown) date) Normocephalic. unknown) (unknown) (no (unknown) (unknown) HPI - URI/Sore (units (unknown) date) Throat unknown) (unknown) (no (unknown) (unknown) HPI Narrative: (units (unknown) date) unknown) (unknown) (no (unknown) (unknown) History of Present (units (unknown) date) Illness unknown) (unknown) (no (unknown) (unknown) Initial Vital (units ( unknown) date) Signs unknown) (unknown) (no (unknown) (unknown) Initial Vital (units ( unknown) date) Signs: unknown) (unknown) (no (unknown) (unknown) Integumentary/[place] (units (unknown) date) sts unknown) (unknown) (no (unknown) (unknown) Lab Data (units (unkno wn) date) unknown) (unknown) (no (unknown) (unknown) Labs: (units (unkno wn) date) unknown) (unknown) (no (unknown) (unknown) [id number] (units (unk nown) date) unknown) (unknown) (no (unknown) (unknown) MDM - URI/Sore (units (unknown) date) Throat unknown) (unknown) (no (unknown) (unknown) Miscellaneous,Doct (units (unknown) date) or, MD [Primary unknown) Care Provider] - (unknown) (no (unknown) (unknown) Mode of arrival: (units (unknown) date) Ambulatory unknown) (unknown) (no (unknown) (unknown) Musculoskeletal (units (unknown) date) unknown) (unknown) (no (unknown) (unknown) Musculoskeletal: (units (unknown) date) Denies neck pain unknown) (unknown) (no (unknown) (unknown) NECK: Trachea (units ( unknown) date) midline. Non tender unknown) (unknown) (no (unknown) (unknown) NEURO: AOx3. (units (u nknown) date) unknown) (unknown) (no (unknown) (unknown) Narrative (units (unkn own) date) unknown) (unknown) (no (unknown) (unknown) Neurologic (units (unk nown) date) unknown) (unknown) (no (unknown) (unknown) Neurologic: Denies (units (unknown) date) dizziness, Denies unknown) frequent falls and Denies weakness (unknown) (no (unknown) (unknown) No Known Drug (units ( unknown) date) Allergies Allergy unknown) Verified 03/27/22 12:49 (unknown) (no (unknown) (unknown) Ordered: (units (unkno wn) date) unknown) (unknown) (no (unknown) (unknown) Orders (units (unkno wn) date) unknown) (unknown) (no (unknown) (unknown) Oxygen Delivery (units (unknown) date) Method 03/27/22 unknown) 12:49 (unknown) (no (unknown) (unknown) Oxygen Delivery (units (unknown) date) Method Room Air unknown) Room Air (unknown) (no (unknown) (unknown) Patient History (units (unknown) date) unknown) (unknown) (no (unknown) (unknown) Patient is a (units (u nknown) date) 22-year-old female unknown) who presents to the emergency department for an (unknown) (no (unknown) (unknown) Patient: (units (unkno wn) date) Andie Whiteside unknown) MR#: (unknown) (no (unknown) (unknown) Pulse Oximetry (units (unknown) date) 100 03/27/22 unknown) 12:49 (unknown) (no (unknown) (unknown) Pulse Oximetry 100 (units (unknown) date) 99 unknown) (unknown) (no (unknown) (unknown) Pulse Rate 108 H (units (unknown) date) 03/27/22 12:49 unknown) (unknown) (no (unknown) (unknown) Pulse Rate 108 H (units (unknown) date) 102 H unknown) (unknown) (no (unknown) (unknown) RESPIRATORY: Clear (units (unknown) date) to auscultation. unknown) Breath sounds equal bilaterally. No wheezes, (unknown) (no (unknown) (unknown) Rapid Strep A (units ( unknown) date) Positive unknown) (unknown) (no (unknown) (unknown) Referrals: (units (unk nown) date) unknown) (unknown) (no (unknown) (unknown) Related Data (units (u nknown) date) unknown) (unknown) (no (unknown) (unknown) Respiratory (units (un known) date) unknown) (unknown) (no (unknown) (unknown) Respiratory Rate (units (unknown) date) 16 03/27/22 12:49 unknown) (unknown) (no (unknown) (unknown) Respiratory Rate (units (unknown) date) 16 18 unknown) (unknown) (no (unknown) (unknown) Respiratory: (units (u nknown) date) Denies chest unknown) congestion, Reports cough, Denies dyspnea and Denies (unknown) (no (unknown) (unknown) Review of Systems (units (unknown) date) unknown) (unknown) (no (unknown) (unknown) SARS-CoV-2 (PCR) (units (unknown) date) Negative unknown) (Negative) (unknown) (no (unknown) (unknown) SKIN: No rash or (units (unknown) date) erythema of visible unknown) areas (unknown) (no (unknown) (unknown) Signed By: (units (unk nown) date) unknown) (unknown) (no (unknown) (unknown) Skin/Breast: (units (u nknown) date) Denies pruritus, unknown) Denies erythema, Denies rash and Denies wounds (unknown) (no (unknown) (unknown) Smoking Status: (units (unknown) date) Current every day unknown) smoker (unknown) (no (unknown) (unknown) Smoking Status: (units (unknown) date) Current every day unknown) smoker (unknown) (no (unknown) (unknown) Social History (units (unknown) date) (Reviewed 03/27/22 unknown) @ 14:11 by Kaden Fuentes PA-C) (unknown) (no (unknown) (unknown) Source: patient (units (unknown) date) unknown) (unknown) (no (unknown) (unknown) Stated Complaint: (units (unknown) date) 'Strep or [place] or unknown) Something' (unknown) (no (unknown) (unknown) Substance Use (units ( unknown) date) Type: does not use unknown) (unknown) (no (unknown) (unknown) Temperature 99.9 (units (unknown) date) F H 03/27/22 12:49 unknown) (unknown) (no (unknown) (unknown) Temperature 99.9 F (units (unknown) date) H unknown) (unknown) (no (unknown) (unknown) Time Seen by (units (u nknown) date) Provider: 03/27/22 unknown) 13:58 (unknown) (no (unknown) (unknown) Vital Signs (units (un known) date) unknown) (unknown) (no (unknown) (unknown) Vital signs: (units (u nknown) date) unknown) (unknown) (no (unknown) (unknown) able to swallow. (units (unknown) date) unknown) (unknown) (no (unknown) (unknown) alcohol intake (units (unknown) date) frequency: unknown) holidays/special occasions only (unknown) (no (unknown) (unknown) and Denies (units (unk nown) date) orthopnea unknown) (unknown) (no (unknown) (unknown) and Denies urinary (units (unknown) date) urgency unknown) (unknown) (no (unknown) (unknown) chills, shortness (units (unknown) date) of breath, nausea, unknown) vomiting, diarrhea, constipation, abdominal (unknown) (no (unknown) (unknown) diarrhea, Denies (units (unknown) date) nausea and Denies unknown) vomiting (unknown) (no (unknown) (unknown) distress. (units (unkn own) date) unknown) (unknown) (no (unknown) (unknown) dyspnea on (units (unk nown) date) exertion unknown) (unknown) (no (unknown) (unknown) evaluation of sore (units (unknown) date) throat. Patient unknown) explains that she has been experiencing sore (unknown) (no (unknown) (unknown) falls, Denies (units ( unknown) date) lethargy and Denies unknown) weakness (unknown) (no (unknown) (unknown) further concerns (units (unknown) date) were voiced at this unknown) time. (unknown) (no (unknown) (unknown) icterus. No (units (un known) date) injection or unknown) drainage. (unknown) (no (unknown) (unknown) lightheadedness, (units (unknown) date) Denies unknown) palpitations, Denies dyspnea, Denies dyspnea on exertion (unknown) (no (unknown) (unknown) neck pain, Reports (units (unknown) date) sore throat and unknown) Denies tongue swelling (unknown) (no (unknown) (unknown) pain, dysuria, (units (unknown) date) hematuria, earache, unknown) rash, or any other concerning symptoms. No (unknown) (no (unknown) (unknown) rales, or rhonchi. (units (unknown) date) unknown) (unknown) (no (unknown) (unknown) sick contact. She (units (unknown) date) explains that her unknown) throat pain is gradually worsening and (unknown) (no (unknown) (unknown) significant (units (un known) date) pharyngeal unknown) swelling, no abscess formation appreciated. Patient is (unknown) (no (unknown) (unknown) states she is (units ( unknown) date) having a difficult unknown) time swallowing. She denies any known fever, (unknown) (no (unknown) (unknown) throat with an (units (unknown) date) intermittent cough unknown) since Thursday. She denies any known recent (unknown) (no (unknown) (unknown) tonsillar pillar (units (unknown) date) erythema with unknown) exudate noticed on left tonsillar pillar. No Result panel 3 (unknown) (no (unknown) (unknown) (no value) (units (unk nown) date) unknown) (unknown) (no (unknown) (unknown) (no value) (units (unk nown) date) unknown) (unknown) (no (unknown) (unknown) *Please continue (units (unknown) date) to take your unknown) regular medications as directed. (unknown) (no (unknown) (unknown) Date of Service: (units (unknown) date) 03/27/22 unknown) (unknown) (no (unknown) (unknown) (no value) (units (unk nown) date) unknown) (unknown) (no (unknown) (unknown) 500 mg PO TID 10 (units (unknown) date) Days Qty: 30 0RF unknown) (unknown) (no (unknown) (unknown) Allergies (units (unkn own) date) unknown) (unknown) (no (unknown) (unknown) ED Orders (units (unkn own) date) unknown) (unknown) (no (unknown) (unknown) Emergency Report (units (unknown) date) unknown) (unknown) (no (unknown) (unknown) [facility] (units (unknown) date) [address] [place] [address] unknown) [place] [address] (unknown) (no (unknown) (unknown) Lab Results (units (un known) date) unknown) (unknown) (no (unknown) (unknown) Point of Care (units ( unknown) date) Testing unknown) (unknown) (no (unknown) (unknown) Previous Rx's (units ( unknown) date) unknown) (unknown) (no (unknown) (unknown) Stop: 03/27/22 (units (unknown) date) 14:10 unknown) (unknown) (no (unknown) (unknown) Vital Signs - 8 hr (units (unknown) date) unknown) (unknown) (no (unknown) (unknown) [ ] New medication (units (unknown) date) written as a paper unknown) prescription (unknown) (no (unknown) (unknown) [ ] No new (units (unk nown) date) medications given unknown) (unknown) (no (unknown) (unknown) [X] New medication (units (unknown) date) prescriptions sent unknown) to your pharmacy: Penicillin- (unknown) (no (unknown) (unknown) (no value) (units (unk nown) date) unknown) (unknown) (no (unknown) (unknown) 03/27/22 (units (unkno wn) date) Range/Units unknown) (unknown) (no (unknown) (unknown) 12:51 (units (unkno wn) date) unknown) (unknown) (no (unknown) (unknown) penicillin V (units (u nknown) date) potassium 500 mg unknown) tablet (unknown) (no (unknown) (unknown) 03/27/22 (units (unkno wn) date) unknown) (unknown) (no (unknown) (unknown) Acute (units (unkno wn) date) streptococcal unknown) pharyngitis (unknown) (no (unknown) (unknown) Medication (units (unk nown) date) Instructions unknown) Recorded (unknown) (no (unknown) (unknown) *If you do not (units (unknown) date) have a primary care unknown) provider please contact the [facility] (unknown) (no (unknown) (unknown) *Please follow up (units (unknown) date) with your primary unknown) care provider in 2-3 days, call for an (unknown) (no (unknown) (unknown) *Return to (units (unk nown) date) Emergency unknown) Department if you should have any new, worsening or (unknown) (no (unknown) (unknown) *What to do: (units (u nknown) date) unknown) (unknown) (no (unknown) (unknown) *You have been (units (unknown) date) diagnosed with unknown) strep throat (unknown) (no (unknown) (unknown) 03/27/22 12:51 (units (unknown) date) unknown) (unknown) (no (unknown) (unknown) 12:49 03/27/22 (units (unknown) date) unknown) (unknown) (no (unknown) (unknown) 13:58 (units (unkno wn) date) unknown) (unknown) (no (unknown) (unknown) Acetaminophen (units ( unknown) date) (Acetaminophen 325 unknown) Mg Tablet) 975 mg PO NOW ONE (unknown) (no (unknown) (unknown) Activity (units (unkno wn) date) Restrictions/[place] unknown) onal Instructions: (unknown) (no (unknown) (unknown) Age/Sex: 22 / F (units (unknown) date) unknown) (unknown) (no (unknown) (unknown) Allergic/Immunolog (units (unknown) date) ic unknown) (unknown) (no (unknown) (unknown) Allergic/Immunolog (units (unknown) date) ic: Denies tongue unknown) swelling (unknown) (no (unknown) (unknown) Allergy/AdvReac (units (unknown) date) Type Severity unknown) Reaction Status Date / Time (unknown) (no (unknown) (unknown) BACK: Nontender (units (unknown) date) without deformity unknown) or crepitance. No flank tenderness. (unknown) (no (unknown) (unknown) Blood Pressure (units (unknown) date) 111/69 03/27/22 unknown) 12:49 (unknown) (no (unknown) (unknown) Blood Pressure (units (unknown) date) 117/70 unknown) (unknown) (no (unknown) (unknown) CARDIOVASCULAR: (units (unknown) date) Regular rate and unknown) rhythm without murmurs, gallops, or rubs. (unknown) (no (unknown) (unknown) COVID19 -Nasal (units (unknown) date) RAPID/Pre-Proc Stat unknown) (unknown) (no (unknown) (unknown) Cardiovascular (units (unknown) date) unknown) (unknown) (no (unknown) (unknown) Cardiovascular: (units (unknown) date) Denies chest pain, unknown) Denies irregular heart rhythm, Denies (unknown) (no (unknown) (unknown) Chief Complaint: (units (unknown) date) Upper Respiratory unknown) Symptoms (unknown) (no (unknown) (unknown) Clinical (units (unkno wn) date) Impression: unknown) (unknown) (no (unknown) (unknown) Constitutional (units (unknown) date) unknown) (unknown) (no (unknown) (unknown) Constitutional: (units (unknown) date) Denies chills, unknown) Denies fatigue, Denies fever(s), Denies frequent (unknown) (no (unknown) (unknown) Course (units (unkno wn) date) unknown) (unknown) (no (unknown) (unknown) Course Narrative: (units (unknown) date) unknown) (unknown) (no (unknown) (unknown) : 2000 (units (unknown) date) Acct:[id number] unknown) (unknown) (no (unknown) (unknown) Departure (units (unkn own) date) unknown) (unknown) (no (unknown) (unknown) Differential (units (u nknown) date) diagnosis to unknown) consider but not limited to strep pharyngitis versus (unknown) (no (unknown) (unknown) Discharge Plan (units (unknown) date) unknown) (unknown) (no (unknown) (unknown) Discontinued (units (u nknown) date) Medications unknown) (unknown) (no (unknown) (unknown) ENT (units (unkno wn) date) unknown) (unknown) (no (unknown) (unknown) ENT: Nose without (units (unknown) date) bleeding, purulent unknown) drainage. Airway patent. Pharyngeal and (unknown) (no (unknown) (unknown) ER Physician: (units ( unknown) date) Kaden Fuentes unknown) P.A-C (unknown) (no (unknown) (unknown) EXTREMITIES: No (units (unknown) date) edema or joint unknown) tenderness. (unknown) (no (unknown) (unknown) EYES: Pupils equal (units (unknown) date) round and reactive. unknown) Extraocular motions intact. No scleral (unknown) (no (unknown) (unknown) Ears, Nose, Mouth, (units (unknown) date) and Throat: Denies unknown) change in voice, Denies dizziness, Denies (unknown) (no (unknown) (unknown) Endocrine (units (unkn own) date) unknown) (unknown) (no (unknown) (unknown) Endocrine: Denies (units (unknown) date) fatigue and Denies unknown) palpitations (unknown) (no (unknown) (unknown) Exam (units (unkno wn) date) unknown) (unknown) (no (unknown) (unknown) Exam Narrative: (units (unknown) date) unknown) (unknown) (no (unknown) (unknown) GASTROINTESTINAL: (units (unknown) date) Abdomen soft, unknown) non-tender, nondistended. (unknown) (no (unknown) (unknown) GENERAL: 22 year (units (unknown) date) old patient appears unknown) stated age. Well-developed patient, in mild (unknown) (no (unknown) (unknown) Gastrointestinal (units (unknown) date) unknown) (unknown) (no (unknown) (unknown) Gastrointestinal: (units (unknown) date) Denies abdominal unknown) pain, Denies change in bowel habits, Denies (unknown) (no (unknown) (unknown) General (units (unkno wn) date) unknown) (unknown) (no (unknown) (unknown) Genitourinary (units ( unknown) date) unknown) (unknown) (no (unknown) (unknown) Genitourinary: (units (unknown) date) Denies hematuria, unknown) Denies flank pain, Denies urinary incontinence (unknown) (no (unknown) (unknown) HEAD: Atraumatic. (units (unknown) date) Normocephalic. unknown) (unknown) (no (unknown) (unknown) HPI - URI/Sore (units (unknown) date) Throat unknown) (unknown) (no (unknown) (unknown) HPI Narrative: (units (unknown) date) unknown) (unknown) (no (unknown) (unknown) History of Present (units (unknown) date) Illness unknown) (unknown) (no (unknown) (unknown) Initial Vital (units ( unknown) date) Signs unknown) (unknown) (no (unknown) (unknown) Initial Vital (units ( unknown) date) Signs: unknown) (unknown) (no (unknown) (unknown) Instructions: DI (units (unknown) date) for Strep Throat unknown) (unknown) (no (unknown) (unknown) Integumentary/[place] (units (unknown) date) sts unknown) (unknown) (no (unknown) (unknown) [facility] (units (un known) date) unknown) (unknown) (no (unknown) (unknown) Lab Data (units (unkno wn) date) unknown) (unknown) (no (unknown) (unknown) Labs: (units (unkno wn) date) unknown) (unknown) (no (unknown) (unknown) [id number] (units (unk nown) date) unknown) (unknown) (no (unknown) (unknown) MDM - URI/Sore (units (unknown) date) Throat unknown) (unknown) (no (unknown) (unknown) MDM Narrative (units ( unknown) date) unknown) (unknown) (no (unknown) (unknown) Medical decision (units (unknown) date) making narrative: unknown) (unknown) (no (unknown) (unknown) Miscellaneous,Doct (units (unknown) date) or, MD [Primary unknown) Care Provider] - (unknown) (no (unknown) (unknown) Mode of arrival: (units (unknown) date) Ambulatory unknown) (unknown) (no (unknown) (unknown) Musculoskeletal (units (unknown) date) unknown) (unknown) (no (unknown) (unknown) Musculoskeletal: (units (unknown) date) Denies neck pain unknown) (unknown) (no (unknown) (unknown) NECK: Trachea (units ( unknown) date) midline. Non tender unknown) (unknown) (no (unknown) (unknown) NEURO: AOx3. (units (u nknown) date) unknown) (unknown) (no (unknown) (unknown) Narrative (units (unkn own) date) unknown) (unknown) (no (unknown) (unknown) Neurologic (units (unk nown) date) unknown) (unknown) (no (unknown) (unknown) Neurologic: Denies (units (unknown) date) dizziness, Denies unknown) frequent falls and Denies weakness (unknown) (no (unknown) (unknown) New (units (unkno wn) date) unknown) (unknown) (no (unknown) (unknown) No Known Drug (units ( unknown) date) Allergies Allergy unknown) Verified 03/27/22 12:49 (unknown) (no (unknown) (unknown) Ordered: (units (unkno wn) date) unknown) (unknown) (no (unknown) (unknown) Orders (units (unkno wn) date) unknown) (unknown) (no (unknown) (unknown) Oxygen Delivery (units (unknown) date) Method 03/27/22 unknown) 12:49 (unknown) (no (unknown) (unknown) Oxygen Delivery (units (unknown) date) Method Room Air unknown) Room Air (unknown) (no (unknown) (unknown) Patient (units (unkno wn) date) Disposition: Home unknown) (unknown) (no (unknown) (unknown) Patient History (units (unknown) date) unknown) (unknown) (no (unknown) (unknown) Patient is a (units (u nknown) date) 22-year-old female unknown) who presents to the emergency department for an (unknown) (no (unknown) (unknown) Patient: (units (unkno wn) date) Andie Whiteside unknown) MR#: (unknown) (no (unknown) (unknown) Prescriptions: (units (unknown) date) unknown) (unknown) (no (unknown) (unknown) Pulse Oximetry (units (unknown) date) 100 03/27/22 unknown) 12:49 (unknown) (no (unknown) (unknown) Pulse Oximetry 100 (units (unknown) date) 99 unknown) (unknown) (no (unknown) (unknown) Pulse Rate 108 H (units (unknown) date) 03/27/22 12:49 unknown) (unknown) (no (unknown) (unknown) Pulse Rate 108 H (units (unknown) date) 102 H unknown) (unknown) (no (unknown) (unknown) RESPIRATORY: Clear (units (unknown) date) to auscultation. unknown) Breath sounds equal bilaterally. No wheezes, (unknown) (no (unknown) (unknown) Rapid Strep A (units ( unknown) date) Positive unknown) (unknown) (no (unknown) (unknown) Rapid strep and (units (unknown) date) COVID swab ordered. unknown) 975 mg of Tylenol administered. Rapid strep (unknown) (no (unknown) (unknown) Rapid strep (units (unk nown) date) performed in in the unknown) emergency department today resulted positive for (unknown) (no (unknown) (unknown) Referrals: (units (unk nown) date) unknown) (unknown) (no (unknown) (unknown) Related Data (units (u nknown) date) unknown) (unknown) (no (unknown) (unknown) Resource line at (units (unknown) date) [phone]. They unknown) will ask some questions about your medical (unknown) (no (unknown) (unknown) Respiratory (units (un known) date) unknown) (unknown) (no (unknown) (unknown) Respiratory Rate (units (unknown) date) 16 03/27/22 12:49 unknown) (unknown) (no (unknown) (unknown) Respiratory Rate (units (unknown) date) 16 18 unknown) (unknown) (no (unknown) (unknown) Respiratory: (units (u nknown) date) Denies chest unknown) congestion, Reports cough, Denies dyspnea and Denies (unknown) (no (unknown) (unknown) Review of Systems (units (unknown) date) unknown) (unknown) (no (unknown) (unknown) SARS-CoV-2 (PCR) (units (unknown) date) Negative unknown) (Negative) (unknown) (no (unknown) (unknown) SKIN: No rash or (units (unknown) date) erythema of visible unknown) areas (unknown) (no (unknown) (unknown) Signed By: (units (unk nown) date) unknown) (unknown) (no (unknown) (unknown) Skin/Breast: (units (u nknown) date) Denies pruritus, unknown) Denies erythema, Denies rash and Denies wounds (unknown) (no (unknown) (unknown) Smoking Status: (units (unknown) date) Current every day unknown) smoker (unknown) (no (unknown) (unknown) Smoking Status: (units (unknown) date) Current every day unknown) smoker (unknown) (no (unknown) (unknown) Social History (units (unknown) date) (Reviewed 03/27/22 unknown) @ 14:11 by Kaden Fuentes PA-C) (unknown) (no (unknown) (unknown) Source: patient (units (unknown) date) unknown) (unknown) (no (unknown) (unknown) Stated Complaint: (units (unknown) date) 'Strep or [place] or unknown) Something' (unknown) (no (unknown) (unknown) Substance Use (units ( unknown) date) Type: does not use unknown) (unknown) (no (unknown) (unknown) Temperature 99.9 (units (unknown) date) F H 03/27/22 12:49 unknown) (unknown) (no (unknown) (unknown) Temperature 99.9 F (units (unknown) date) H unknown) (unknown) (no (unknown) (unknown) Time Seen by (units (u nknown) date) Provider: 03/27/22 unknown) 13:58 (unknown) (no (unknown) (unknown) Vital Signs (units (un known) date) unknown) (unknown) (no (unknown) (unknown) Vital signs: (units (u nknown) date) unknown) (unknown) (no (unknown) (unknown) You were evaluated (units (unknown) date) in the emergency unknown) department today for sore throat and cough. (unknown) (no (unknown) (unknown) able to swallow. (units (unknown) date) unknown) (unknown) (no (unknown) (unknown) alcohol intake (units (unknown) date) frequency: unknown) holidays/special occasions only (unknown) (no (unknown) (unknown) and Denies (units (unk nown) date) orthopnea unknown) (unknown) (no (unknown) (unknown) and Denies urinary (units (unknown) date) urgency unknown) (unknown) (no (unknown) (unknown) appointment. Let (units (unknown) date) them know you were unknown) seen in the Emergency Department and that we (unknown) (no (unknown) (unknown) ask that you be (units (unknown) date) seen in follow up. unknown) We will electronically transmit a record of (unknown) (no (unknown) (unknown) been sent to your (units (unknown) date) preferred pharmacy. unknown) Ensure the complete the full course as (unknown) (no (unknown) (unknown) breathing, throat (units (unknown) date) swelling, or any unknown) other concerning symptoms. (unknown) (no (unknown) (unknown) chills, shortness (units (unknown) date) of breath, nausea, unknown) vomiting, diarrhea, constipation, abdominal (unknown) (no (unknown) (unknown) concerning (units (unkn own) date) symptoms, such as unknown) fever greater than 101 F, shaking chills, worsening (unknown) (no (unknown) (unknown) diarrhea, Denies (units (unknown) date) nausea and Denies unknown) vomiting (unknown) (no (unknown) (unknown) directed. Please (units (unknown) date) follow-up with unknown) primary care for further evaluation and (unknown) (no (unknown) (unknown) distress. (units (unkn own) date) unknown) (unknown) (no (unknown) (unknown) dyspnea on (units (unk nown) date) exertion unknown) (unknown) (no (unknown) (unknown) evaluation of sore (units (unknown) date) throat. Patient unknown) explains that she has been experiencing sore (unknown) (no (unknown) (unknown) falls, Denies (units ( unknown) date) lethargy and Denies unknown) weakness (unknown) (no (unknown) (unknown) further concerns (units (unknown) date) were voiced at this unknown) time. (unknown) (no (unknown) (unknown) history and help (units (unknown) date) get you set up with unknown) a doctor in the community. (unknown) (no (unknown) (unknown) icterus. No (units (un known) date) injection or unknown) drainage. (unknown) (no (unknown) (unknown) lightheadedness, (units (unknown) date) Denies unknown) palpitations, Denies dyspnea, Denies dyspnea on exertion (unknown) (no (unknown) (unknown) management. (units (un known) date) Tylenol and unknown) ibuprofen can be used for fever and pain management, (unknown) (no (unknown) (unknown) neck pain, Reports (units (unknown) date) sore throat and unknown) Denies tongue swelling (unknown) (no (unknown) (unknown) pain, dysuria, (units (unknown) date) hematuria, earache, unknown) rash, or any other concerning symptoms. No (unknown) (no (unknown) (unknown) pain, persistent (units (unknown) date) vomiting or other unknown) bothersome symptoms. (unknown) (no (unknown) (unknown) penicillin V (units (u nknown) date) potassium 500 mg unknown) 500 mg PO TID 10 days #30 tabs 03/27/22 (unknown) (no (unknown) (unknown) rales, or rhonchi. (units (unknown) date) unknown) (unknown) (no (unknown) (unknown) resulted positive. (units (unknown) date) unknown) (unknown) (no (unknown) (unknown) return to the (units ( unknown) date) emergency unknown) department if you experience worsening pain, difficulty (unknown) (no (unknown) (unknown) sick contact. She (units (unknown) date) explains that her unknown) throat pain is gradually worsening and (unknown) (no (unknown) (unknown) significant (units (un known) date) pharyngeal unknown) swelling, no abscess formation appreciated. Patient is (unknown) (no (unknown) (unknown) states she is (units ( unknown) date) having a difficult unknown) time swallowing. She denies any known fever, (unknown) (no (unknown) (unknown) strep pharyngitis. (units (unknown) date) I have provided unknown) you a prescription for penicillin which has (unknown) (no (unknown) (unknown) tablet (units (unkno wn) date) unknown) (unknown) (no (unknown) (unknown) throat with an (units (unknown) date) intermittent cough unknown) since Thursday. She denies any known recent (unknown) (no (unknown) (unknown) today's note if (units (unknown) date) your PCP is in our unknown) system (unknown) (no (unknown) (unknown) tonsillar pillar (units (unknown) date) erythema with unknown) exudate noticed on left tonsillar pillar. No (unknown) (no (unknown) (unknown) upper respiratory (units (unknown) date) infection. unknown) (unknown) (no (unknown) (unknown) viral pharyngitis (units (unknown) date) versus allergic unknown) rhinitis versus rhinosinusitis versus viral (unknown) (no (unknown) (unknown) warm saltwater (units ( unknown) date) gargles can help unknown) alleviate throat discomfort. Do not hesitate to Result panel 4 (unknown) (no (unknown) (unknown) (no value) (units (unk nown) date) unknown) (unknown) (no (unknown) (unknown) (no value) (units (unk nown) date) unknown) (unknown) (no (unknown) (unknown) *Please continue (units (unknown) date) to take your unknown) regular medications as directed. (unknown) (no (unknown) (unknown) Date of Service: (units (unknown) date) 03/27/22 unknown) (unknown) (no (unknown) (unknown) (no value) (units (unk nown) date) unknown) (unknown) (no (unknown) (unknown) <Electronically (units (unknown) date) signed by Kaden unknown) P.A-C Clapper> (unknown) (no (unknown) (unknown) 03/27/22 1939 (units ( unknown) date) unknown) (unknown) (no (unknown) (unknown) 500 mg PO TID 10 (units (unknown) date) Days Qty: 30 0RF unknown) (unknown) (no (unknown) (unknown) Allergies (units (unkn own) date) unknown) (unknown) (no (unknown) (unknown) Documented By: AT (units (unknown) date) unknown) (unknown) (no (unknown) (unknown) ED Orders (units (unkn own) date) unknown) (unknown) (no (unknown) (unknown) Emergency Report (units (unknown) date) unknown) (unknown) (no (unknown) (unknown) [facility] (units (unknown) date) [address] unknown) [place] [address] (unknown) (no (unknown) (unknown) Lab Results (units (un known) date) unknown) (unknown) (no (unknown) (unknown) Last Admin: (units (un known) date) 03/27/22 14:25 unknown) Dose: 975 mg (unknown) (no (unknown) (unknown) Point of Care (units ( unknown) date) Testing unknown) (unknown) (no (unknown) (unknown) Previous Rx's (units ( unknown) date) unknown) (unknown) (no (unknown) (unknown) Stop: 03/27/22 (units (unknown) date) 14:10 unknown) (unknown) (no (unknown) (unknown) Vital Signs - 8 hr (units (unknown) date) unknown) (unknown) (no (unknown) (unknown) [ ] New medication (units (unknown) date) written as a paper unknown) prescription (unknown) (no (unknown) (unknown) [ ] No new (units (unk nown) date) medications given unknown) (unknown) (no (unknown) (unknown) [X] New medication (units (unknown) date) prescriptions sent unknown) to your pharmacy: Penicillin- (unknown) (no (unknown) (unknown) (no value) (units (unk nown) date) unknown) (unknown) (no (unknown) (unknown) 03/27/22 (units (unkno wn) date) Range/Units unknown) (unknown) (no (unknown) (unknown) 12:51 (units (unkno wn) date) unknown) (unknown) (no (unknown) (unknown) penicillin V (units (u nknown) date) potassium 500 mg unknown) tablet (unknown) (no (unknown) (unknown) 03/27/22 (units (unkno wn) date) unknown) (unknown) (no (unknown) (unknown) Acute (units (unkno wn) date) streptococcal unknown) pharyngitis (unknown) (no (unknown) (unknown) Medication (units (unk nown) date) Instructions unknown) Recorded (unknown) (no (unknown) (unknown) *If you do not (units (unknown) date) have a primary care unknown) provider please contact the [facility] (unknown) (no (unknown) (unknown) *Please follow up (units (unknown) date) with your primary unknown) care provider in 2-3 days, call for an (unknown) (no (unknown) (unknown) *Return to (units (unk nown) date) Emergency unknown) Department if you should have any new, worsening or (unknown) (no (unknown) (unknown) *What to do: (units (u nknown) date) unknown) (unknown) (no (unknown) (unknown) *You have been (units (unknown) date) diagnosed with unknown) strep throat (unknown) (no (unknown) (unknown) 03/27/22 12:51 (units (unknown) date) unknown) (unknown) (no (unknown) (unknown) 12:49 03/27/22 (units (unknown) date) unknown) (unknown) (no (unknown) (unknown) 13:58 (units (unkno wn) date) unknown) (unknown) (no (unknown) (unknown) Acetaminophen (units ( unknown) date) (Acetaminophen 325 unknown) Mg Tablet) 975 mg PO NOW ONE (unknown) (no (unknown) (unknown) Activity (units (unkno wn) date) Restrictions/[place] unknown) onal Instructions: (unknown) (no (unknown) (unknown) Age/Sex: 22 / F (units (unknown) date) unknown) (unknown) (no (unknown) (unknown) Allergic/Immunolog (units (unknown) date) ic unknown) (unknown) (no (unknown) (unknown) Allergic/Immunolog (units (unknown) date) ic: Denies tongue unknown) swelling (unknown) (no (unknown) (unknown) Allergy/AdvReac (units (unknown) date) Type Severity unknown) Reaction Status Date / Time (unknown) (no (unknown) (unknown) BACK: Nontender (units (unknown) date) without deformity unknown) or crepitance. No flank tenderness. (unknown) (no (unknown) (unknown) Blood Pressure (units (unknown) date) 03/27/22 unknown) 12:49 (unknown) (no (unknown) (unknown) Blood Pressure (units (unknown) date) 117/70 unknown) (unknown) (no (unknown) (unknown) CARDIOVASCULAR: (units (unknown) date) Regular rate and unknown) rhythm without murmurs, gallops, or rubs. (unknown) (no (unknown) (unknown) COVID19 -Nasal (units (unknown) date) RAPID/Pre-Proc Stat unknown) (unknown) (no (unknown) (unknown) Cardiovascular (units (unknown) date) unknown) (unknown) (no (unknown) (unknown) Cardiovascular: (units (unknown) date) Denies chest pain, unknown) Denies irregular heart rhythm, Denies (unknown) (no (unknown) (unknown) Chief Complaint: (units (unknown) date) Upper Respiratory unknown) Symptoms (unknown) (no (unknown) (unknown) Clinical (units (unkno wn) date) Impression: unknown) (unknown) (no (unknown) (unknown) Constitutional (units (unknown) date) unknown) (unknown) (no (unknown) (unknown) Constitutional: (units (unknown) date) Denies chills, unknown) Denies fatigue, Denies fever(s), Denies frequent (unknown) (no (unknown) (unknown) Course (units (unkno wn) date) unknown) (unknown) (no (unknown) (unknown) Course Narrative: (units (unknown) date) unknown) (unknown) (no (unknown) (unknown) : 2000 (units (unknown) date) Acct:[id number] unknown) (unknown) (no (unknown) (unknown) Departure (units (unkn own) date) unknown) (unknown) (no (unknown) (unknown) Differential (units (u nknown) date) diagnosis to unknown) consider but not limited to strep pharyngitis versus (unknown) (no (unknown) (unknown) Discharge Plan (units (unknown) date) unknown) (unknown) (no (unknown) (unknown) Discontinued (units (u nknown) date) Medications unknown) (unknown) (no (unknown) (unknown) ENT (units (unkno wn) date) unknown) (unknown) (no (unknown) (unknown) ENT: Nose without (units (unknown) date) bleeding, purulent unknown) drainage. Airway patent. Pharyngeal and (unknown) (no (unknown) (unknown) ER Physician: (units ( unknown) date) Kaden Fuentes unknown) P.A-C (unknown) (no (unknown) (unknown) EXTREMITIES: No (units (unknown) date) edema or joint unknown) tenderness. (unknown) (no (unknown) (unknown) EYES: Pupils equal (units (unknown) date) round and reactive. unknown) Extraocular motions intact. No scleral (unknown) (no (unknown) (unknown) Ears, Nose, Mouth, (units (unknown) date) and Throat: Denies unknown) change in voice, Denies dizziness, Denies (unknown) (no (unknown) (unknown) Endocrine (units (unkn own) date) unknown) (unknown) (no (unknown) (unknown) Endocrine: Denies (units (unknown) date) fatigue and Denies unknown) palpitations (unknown) (no (unknown) (unknown) Exam (units (unkno wn) date) unknown) (unknown) (no (unknown) (unknown) Exam Narrative: (units (unknown) date) unknown) (unknown) (no (unknown) (unknown) GASTROINTESTINAL: (units (unknown) date) Abdomen soft, unknown) non-tender, nondistended. (unknown) (no (unknown) (unknown) GENERAL: 22 year (units (unknown) date) old patient appears unknown) stated age. Well-developed patient, in mild (unknown) (no (unknown) (unknown) Gastrointestinal (units (unknown) date) unknown) (unknown) (no (unknown) (unknown) Gastrointestinal: (units (unknown) date) Denies abdominal unknown) pain, Denies change in bowel habits, Denies (unknown) (no (unknown) (unknown) General (units (unkno wn) date) unknown) (unknown) (no (unknown) (unknown) Genitourinary (units ( unknown) date) unknown) (unknown) (no (unknown) (unknown) Genitourinary: (units (unknown) date) Denies hematuria, unknown) Denies flank pain, Denies urinary incontinence (unknown) (no (unknown) (unknown) HEAD: Atraumatic. (units (unknown) date) Normocephalic. unknown) (unknown) (no (unknown) (unknown) HPI - URI/Sore (units (unknown) date) Throat unknown) (unknown) (no (unknown) (unknown) HPI Narrative: (units (unknown) date) unknown) (unknown) (no (unknown) (unknown) History of Present (units (unknown) date) Illness unknown) (unknown) (no (unknown) (unknown) Initial Vital (units ( unknown) date) Signs unknown) (unknown) (no (unknown) (unknown) Initial Vital (units ( unknown) date) Signs: unknown) (unknown) (no (unknown) (unknown) Instructions: DI (units (unknown) date) for Strep Throat unknown) (unknown) (no (unknown) (unknown) Integumentary/[place] (units (unknown) date) sts unknown) (unknown) (no (unknown) (unknown) [facility] (units (un known) date) unknown) (unknown) (no (unknown) (unknown) Lab Data (units (unkno wn) date) unknown) (unknown) (no (unknown) (unknown) Labs: (units (unkno wn) date) unknown) (unknown) (no (unknown) (unknown) [id number] (units (unk nown) date) unknown) (unknown) (no (unknown) (unknown) MDM - URI/Sore (units (unknown) date) Throat unknown) (unknown) (no (unknown) (unknown) MDM Narrative (units ( unknown) date) unknown) (unknown) (no (unknown) (unknown) Medical decision (units (unknown) date) making narrative: unknown) (unknown) (no (unknown) (unknown) Miscellaneous,Doct (units (unknown) date) or, MD [Primary unknown) Care Provider] - (unknown) (no (unknown) (unknown) Mode of arrival: (units (unknown) date) Ambulatory unknown) (unknown) (no (unknown) (unknown) Musculoskeletal (units (unknown) date) unknown) (unknown) (no (unknown) (unknown) Musculoskeletal: (units (unknown) date) Denies neck pain unknown) (unknown) (no (unknown) (unknown) NECK: Trachea (units ( unknown) date) midline. Non tender unknown) (unknown) (no (unknown) (unknown) NEURO: AOx3. (units (u nknown) date) unknown) (unknown) (no (unknown) (unknown) Narrative (units (unkn own) date) unknown) (unknown) (no (unknown) (unknown) Neurologic (units (unk nown) date) unknown) (unknown) (no (unknown) (unknown) Neurologic: Denies (units (unknown) date) dizziness, Denies unknown) frequent falls and Denies weakness (unknown) (no (unknown) (unknown) New (units (unkno wn) date) unknown) (unknown) (no (unknown) (unknown) No Known Drug (units ( unknown) date) Allergies Allergy unknown) Verified 03/27/22 12:49 (unknown) (no (unknown) (unknown) Ordered: (units (unkno wn) date) unknown) (unknown) (no (unknown) (unknown) Orders (units (unkno wn) date) unknown) (unknown) (no (unknown) (unknown) Oxygen Delivery (units (unknown) date) Method 03/27/22 unknown) 12:49 (unknown) (no (unknown) (unknown) Oxygen Delivery (units (unknown) date) Method Room Air unknown) Room Air (unknown) (no (unknown) (unknown) Patient (units (unkno wn) date) Disposition: Home unknown) (unknown) (no (unknown) (unknown) Patient History (units (unknown) date) unknown) (unknown) (no (unknown) (unknown) Patient is a (units (u nknown) date) 22-year-old female unknown) who presents to the emergency department for an (unknown) (no (unknown) (unknown) Patient: (units (unkno wn) date) Andie Whiteside A unknown) MR#: (unknown) (no (unknown) (unknown) Prescriptions: (units (unknown) date) unknown) (unknown) (no (unknown) (unknown) Pulse Oximetry (units (unknown) date) 100 03/27/22 unknown) 12:49 (unknown) (no (unknown) (unknown) Pulse Oximetry 100 (units (unknown) date) 99 unknown) (unknown) (no (unknown) (unknown) Pulse Rate 108 H (units (unknown) date) 03/27/22 12:49 unknown) (unknown) (no (unknown) (unknown) Pulse Rate 108 H (units (unknown) date) 102 H unknown) (unknown) (no (unknown) (unknown) RESPIRATORY: Clear (units (unknown) date) to auscultation. unknown) Breath sounds equal bilaterally. No wheezes, (unknown) (no (unknown) (unknown) Rapid Strep A (units ( unknown) date) Positive unknown) (unknown) (no (unknown) (unknown) Rapid strep and (units (unknown) date) COVID swab ordered. unknown) 975 mg of Tylenol administered. Rapid strep (unknown) (no (unknown) (unknown) Rapid strep (units (unk nown) date) performed in in the unknown) emergency department today resulted positive for (unknown) (no (unknown) (unknown) Referrals: (units (unk nown) date) unknown) (unknown) (no (unknown) (unknown) Related Data (units (u nknown) date) unknown) (unknown) (no (unknown) (unknown) Resource line at (units (unknown) date) [phone]. They unknown) will ask some questions about your medical (unknown) (no (unknown) (unknown) Respiratory (units (un known) date) unknown) (unknown) (no (unknown) (unknown) Respiratory Rate (units (unknown) date) 16 03/27/22 12:49 unknown) (unknown) (no (unknown) (unknown) Respiratory Rate (units (unknown) date) 16 18 unknown) (unknown) (no (unknown) (unknown) Respiratory: (units (u nknown) date) Denies chest unknown) congestion, Reports cough, Denies dyspnea and Denies (unknown) (no (unknown) (unknown) Review of Systems (units (unknown) date) unknown) (unknown) (no (unknown) (unknown) SARS-CoV-2 (PCR) (units (unknown) date) Negative unknown) (Negative) (unknown) (no (unknown) (unknown) SKIN: No rash or (units (unknown) date) erythema of visible unknown) areas (unknown) (no (unknown) (unknown) Signed By: (units (unk nown) date) unknown) (unknown) (no (unknown) (unknown) Skin/Breast: (units (u nknown) date) Denies pruritus, unknown) Denies erythema, Denies rash and Denies wounds (unknown) (no (unknown) (unknown) Smoking Status: (units (unknown) date) Current every day unknown) smoker (unknown) (no (unknown) (unknown) Smoking Status: (units (unknown) date) Current every day unknown) smoker (unknown) (no (unknown) (unknown) Social History (units (unknown) date) (Reviewed 03/27/22 unknown) @ 14:11 by Kaden Fuentes PA-C) (unknown) (no (unknown) (unknown) Source: patient (units (unknown) date) unknown) (unknown) (no (unknown) (unknown) Stated Complaint: (units (unknown) date) 'Strep or [place] or unknown) Something' (unknown) (no (unknown) (unknown) Substance Use (units ( unknown) date) Type: does not use unknown) (unknown) (no (unknown) (unknown) Temperature 99.9 (units (unknown) date) F H 03/27/22 12:49 unknown) (unknown) (no (unknown) (unknown) Temperature 99.9 F (units (unknown) date) H unknown) (unknown) (no (unknown) (unknown) Time Seen by (units (u nknown) date) Provider: 03/27/22 unknown) 13:58 (unknown) (no (unknown) (unknown) Visit Report (units (u nknown) date) Forms: Patient unknown) Portal/API (unknown) (no (unknown) (unknown) Vital Signs (units (un known) date) unknown) (unknown) (no (unknown) (unknown) Vital signs: (units (u nknown) date) unknown) (unknown) (no (unknown) (unknown) You were evaluated (units (unknown) date) in the emergency unknown) department today for sore throat and cough. (unknown) (no (unknown) (unknown) able to swallow. (units (unknown) date) unknown) (unknown) (no (unknown) (unknown) alcohol intake (units (unknown) date) frequency: unknown) holidays/special occasions only (unknown) (no (unknown) (unknown) and Denies (units (unk nown) date) orthopnea unknown) (unknown) (no (unknown) (unknown) and Denies urinary (units (unknown) date) urgency unknown) (unknown) (no (unknown) (unknown) appointment. Let (units (unknown) date) them know you were unknown) seen in the Emergency Department and that we (unknown) (no (unknown) (unknown) ask that you be (units (unknown) date) seen in follow up. unknown) We will electronically transmit a record of (unknown) (no (unknown) (unknown) been sent to your (units (unknown) date) preferred pharmacy. unknown) Ensure the complete the full course as (unknown) (no (unknown) (unknown) breathing, throat (units (unknown) date) swelling, or any unknown) other concerning symptoms. (unknown) (no (unknown) (unknown) chills, shortness (units (unknown) date) of breath, nausea, unknown) vomiting, diarrhea, constipation, abdominal (unknown) (no (unknown) (unknown) concerning (units (unkn own) date) symptoms, such as unknown) fever greater than 101 F, shaking chills, worsening (unknown) (no (unknown) (unknown) diarrhea, Denies (units (unknown) date) nausea and Denies unknown) vomiting (unknown) (no (unknown) (unknown) directed. Please (units (unknown) date) follow-up with unknown) primary care for further evaluation and (unknown) (no (unknown) (unknown) distress. (units (unkn own) date) unknown) (unknown) (no (unknown) (unknown) dyspnea on (units (unk nown) date) exertion unknown) (unknown) (no (unknown) (unknown) evaluation of sore (units (unknown) date) throat. Patient unknown) explains that she has been experiencing sore (unknown) (no (unknown) (unknown) falls, Denies (units ( unknown) date) lethargy and Denies unknown) weakness (unknown) (no (unknown) (unknown) further concerns (units (unknown) date) were voiced at this unknown) time. (unknown) (no (unknown) (unknown) history and help (units (unknown) date) get you set up with unknown) a doctor in the community. (unknown) (no (unknown) (unknown) icterus. No (units (un known) date) injection or unknown) drainage. (unknown) (no (unknown) (unknown) lightheadedness, (units (unknown) date) Denies unknown) palpitations, Denies dyspnea, Denies dyspnea on exertion (unknown) (no (unknown) (unknown) management. (units (un known) date) Tylenol and unknown) ibuprofen can be used for fever and pain management, (unknown) (no (unknown) (unknown) neck pain, Reports (units (unknown) date) sore throat and unknown) Denies tongue swelling (unknown) (no (unknown) (unknown) pain, dysuria, (units (unknown) date) hematuria, earache, unknown) rash, or any other concerning symptoms. No (unknown) (no (unknown) (unknown) pain, persistent (units (unknown) date) vomiting or other unknown) bothersome symptoms. (unknown) (no (unknown) (unknown) penicillin V (units (u nknown) date) potassium 500 mg unknown) 500 mg PO TID 10 days #30 tabs 03/27/22 (unknown) (no (unknown) (unknown) pper respiratory (units (unknown) date) infection. unknown) (unknown) (no (unknown) (unknown) rales, or rhonchi. (units (unknown) date) unknown) (unknown) (no (unknown) (unknown) resulted positive. (units (unknown) date) unknown) (unknown) (no (unknown) (unknown) return to the (units ( unknown) date) emergency unknown) department if you experience worsening pain, difficulty (unknown) (no (unknown) (unknown) sick contact. She (units (unknown) date) explains that her unknown) throat pain is gradually worsening and (unknown) (no (unknown) (unknown) significant (units (un known) date) pharyngeal unknown) swelling, no abscess formation appreciated. Patient is (unknown) (no (unknown) (unknown) states she is (units ( unknown) date) having a difficult unknown) time swallowing. She denies any known fever, (unknown) (no (unknown) (unknown) strep pharyngitis. (units (unknown) date) I have provided unknown) you a prescription for penicillin which has (unknown) (no (unknown) (unknown) tablet (units (unkno wn) date) unknown) (unknown) (no (unknown) (unknown) throat with an (units (unknown) date) intermittent cough unknown) since Thursday. She denies any known recent (unknown) (no (unknown) (unknown) today's note if (units (unknown) date) your PCP is in our unknown) system (unknown) (no (unknown) (unknown) tonsillar pillar (units (unknown) date) erythema with unknown) exudate noticed on left tonsillar pillar. No (unknown) (no (unknown) (unknown) viral pharyngitis (units (unknown) date) versus allergic unknown) rhinitis versus rhinosinusitis versus viral u (unknown) (no (unknown) (unknown) warm saltwater (units ( unknown) date) gargles can help unknown) alleviate throat discomfort. Do not hesitate to Result panel 5 (unknown) (no (unknown) (unknown) (no value) (units (unk nown) date) unknown) (unknown) (no (unknown) (unknown) (no value) (units (unk nown) date) unknown) (unknown) (no (unknown) (unknown) *Please continue (units (unknown) date) to take your unknown) regular medications as directed. (unknown) (no (unknown) (unknown) Date of Service: (units (unknown) date) 03/27/22 unknown) (unknown) (no (unknown) (unknown) (no value) (units (unk nown) date) unknown) (unknown) (no (unknown) (unknown) <Electronically (units (unknown) date) signed by Luh unknown) Aguilar D.O.> (unknown) (no (unknown) (unknown) <Electronically (units (unknown) date) signed by Luh unknown) Percy Sheikh> (unknown) (no (unknown) (unknown) <Electronically (units (unknown) date) signed by Kaden unknown) Roverto Fuentes> (unknown) (no (unknown) (unknown) 03/27/22 1939 (units ( unknown) date) unknown) (unknown) (no (unknown) (unknown) 03/28/22 0727 (units ( unknown) date) unknown) (unknown) (no (unknown) (unknown) 500 mg PO TID 10 (units (unknown) date) Days Qty: 30 0RF unknown) (unknown) (no (unknown) (unknown) Allergies (units (unkn own) date) unknown) (unknown) (no (unknown) (unknown) Documented By: AT (units (unknown) date) unknown) (unknown) (no (unknown) (unknown) Emergency Report (units (unknown) date) unknown) (unknown) (no (unknown) (unknown) [facility] (units (unknown) date) [address] [place] [address] unknown) [place] [address] (unknown) (no (unknown) (unknown) Lab Results (units (un known) date) unknown) (unknown) (no (unknown) (unknown) Last Admin: (units (un known) date) 03/27/22 14:25 unknown) Dose: 975 mg (unknown) (no (unknown) (unknown) Point of Care (units ( unknown) date) Testing unknown) (unknown) (no (unknown) (unknown) Previous Rx's (units ( unknown) date) unknown) (unknown) (no (unknown) (unknown) Stop: 03/27/22 (units (unknown) date) 14:10 unknown) (unknown) (no (unknown) (unknown) Vital Signs - 8 hr (units (unknown) date) unknown) (unknown) (no (unknown) (unknown) [ ] New medication (units (unknown) date) written as a paper unknown) prescription (unknown) (no (unknown) (unknown) [ ] No new (units (unk nown) date) medications given unknown) (unknown) (no (unknown) (unknown) [X] New medication (units (unknown) date) prescriptions sent unknown) to your pharmacy: Penicillin- (unknown) (no (unknown) (unknown) (no value) (units (unk nown) date) unknown) (unknown) (no (unknown) (unknown) 03/27/22 (units (unkno wn) date) Range/Units unknown) (unknown) (no (unknown) (unknown) 12:51 (units (unkno wn) date) unknown) (unknown) (no (unknown) (unknown) penicillin V (units (u nknown) date) potassium 500 mg unknown) tablet (unknown) (no (unknown) (unknown) 03/27/22 (units (unkno wn) date) unknown) (unknown) (no (unknown) (unknown) Acute (units (unkno wn) date) streptococcal unknown) pharyngitis (unknown) (no (unknown) (unknown) Medication (units (unk nown) date) Instructions unknown) Recorded (unknown) (no (unknown) (unknown) <Luh Sheikh, (units (unknown) date) DO - Last Filed: unknown) 03/28/22 07:27> (unknown) (no (unknown) (unknown) <Kaden Fuentes, (units (unknown) date) PA-C - Last Filed: unknown) 03/27/22 19:39> (unknown) (no (unknown) (unknown) <cosigner> (units (unk nown) date) unknown) (unknown) (no (unknown) (unknown) *If you do not (units (unknown) date) have a primary care unknown) provider please contact the [facility] (unknown) (no (unknown) (unknown) *Please follow up (units (unknown) date) with your primary unknown) care provider in 2-3 days, call for an (unknown) (no (unknown) (unknown) *Return to (units (unk nown) date) Emergency unknown) Department if you should have any new, worsening or (unknown) (no (unknown) (unknown) *What to do: (units (u nknown) date) unknown) (unknown) (no (unknown) (unknown) *You have been (units (unknown) date) diagnosed with unknown) strep throat (unknown) (no (unknown) (unknown) 12:49 03/27/22 (units (unknown) date) unknown) (unknown) (no (unknown) (unknown) 13:58 (units (unkno wn) date) unknown) (unknown) (no (unknown) (unknown) Acetaminophen (units ( unknown) date) (Acetaminophen 325 unknown) Mg Tablet) 975 mg PO NOW ONE (unknown) (no (unknown) (unknown) Activity (units (unkno wn) date) Restrictions/[place] unknown) onal Instructions: (unknown) (no (unknown) (unknown) Age/Sex: 22 / F (units (unknown) date) unknown) (unknown) (no (unknown) (unknown) Allergic/Immunolog (units (unknown) date) ic unknown) (unknown) (no (unknown) (unknown) Allergic/Immunolog (units (unknown) date) ic: Denies tongue unknown) swelling (unknown) (no (unknown) (unknown) Allergy/AdvReac (units (unknown) date) Type Severity unknown) Reaction Status Date / Time (unknown) (no (unknown) (unknown) BACK: Nontender (units (unknown) date) without deformity unknown) or crepitance. No flank tenderness. (unknown) (no (unknown) (unknown) Blood Pressure (units (unknown) date) 03/27/22 unknown) 12:49 (unknown) (no (unknown) (unknown) Blood Pressure (units (unknown) date) 117/70 unknown) (unknown) (no (unknown) (unknown) CARDIOVASCULAR: (units (unknown) date) Regular rate and unknown) rhythm without murmurs, gallops, or rubs. (unknown) (no (unknown) (unknown) Cardiovascular (units (unknown) date) unknown) (unknown) (no (unknown) (unknown) Cardiovascular: (units (unknown) date) Denies chest pain, unknown) Denies irregular heart rhythm, Denies (unknown) (no (unknown) (unknown) Chief Complaint: (units (unknown) date) Upper Respiratory unknown) Symptoms (unknown) (no (unknown) (unknown) Clinical (units (unkno wn) date) Impression: unknown) (unknown) (no (unknown) (unknown) Constitutional (units (unknown) date) unknown) (unknown) (no (unknown) (unknown) Constitutional: (units (unknown) date) Denies chills, unknown) Denies fatigue, Denies fever(s), Denies frequent (unknown) (no (unknown) (unknown) Cosign (units (unkno wn) date) unknown) (unknown) (no (unknown) (unknown) Course (units (unkno wn) date) unknown) (unknown) (no (unknown) (unknown) Course Narrative: (units (unknown) date) unknown) (unknown) (no (unknown) (unknown) : 2000 (units (unknown) date) Acct:[id number] unknown) (unknown) (no (unknown) (unknown) Departure (units (unkn own) date) unknown) (unknown) (no (unknown) (unknown) Differential (units (u nknown) date) diagnosis to unknown) consider but not limited to strep pharyngitis versus (unknown) (no (unknown) (unknown) Discharge Plan (units (unknown) date) unknown) (unknown) (no (unknown) (unknown) Discontinued (units (u nknown) date) Medications unknown) (unknown) (no (unknown) (unknown) ED Attending (units (u nknown) date) Cosignature unknown) Attestation: (unknown) (no (unknown) (unknown) ENT (units (unkno wn) date) unknown) (unknown) (no (unknown) (unknown) ENT: Nose without (units (unknown) date) bleeding, purulent unknown) drainage. Airway patent. Pharyngeal and (unknown) (no (unknown) (unknown) ER Physician: (units ( unknown) date) Kaden Fuentes unknown) P.A-C (unknown) (no (unknown) (unknown) EXTREMITIES: No (units (unknown) date) edema or joint unknown) tenderness. (unknown) (no (unknown) (unknown) EYES: Pupils equal (units (unknown) date) round and reactive. unknown) Extraocular motions intact. No scleral (unknown) (no (unknown) (unknown) Ears, Nose, Mouth, (units (unknown) date) and Throat: Denies unknown) change in voice, Denies dizziness, Denies (unknown) (no (unknown) (unknown) Endocrine (units (unkn own) date) unknown) (unknown) (no (unknown) (unknown) Endocrine: Denies (units (unknown) date) fatigue and Denies unknown) palpitations (unknown) (no (unknown) (unknown) Exam (units (unkno wn) date) unknown) (unknown) (no (unknown) (unknown) Exam Narrative: (units (unknown) date) unknown) (unknown) (no (unknown) (unknown) GASTROINTESTINAL: (units (unknown) date) Abdomen soft, unknown) non-tender, nondistended. (unknown) (no (unknown) (unknown) GENERAL: 22 year (units (unknown) date) old patient appears unknown) stated age. Well-developed patient, in mild (unknown) (no (unknown) (unknown) Gastrointestinal (units (unknown) date) unknown) (unknown) (no (unknown) (unknown) Gastrointestinal: (units (unknown) date) Denies abdominal unknown) pain, Denies change in bowel habits, Denies (unknown) (no (unknown) (unknown) General (units (unkno wn) date) unknown) (unknown) (no (unknown) (unknown) Genitourinary (units ( unknown) date) unknown) (unknown) (no (unknown) (unknown) Genitourinary: (units (unknown) date) Denies hematuria, unknown) Denies flank pain, Denies urinary incontinence (unknown) (no (unknown) (unknown) HEAD: Atraumatic. (units (unknown) date) Normocephalic. unknown) (unknown) (no (unknown) (unknown) HPI - URI/Sore (units (unknown) date) Throat unknown) (unknown) (no (unknown) (unknown) HPI Narrative: (units (unknown) date) unknown) (unknown) (no (unknown) (unknown) History of Present (units (unknown) date) Illness unknown) (unknown) (no (unknown) (unknown) I was immediately (units (unknown) date) available in the unknown) department for consultation. Documentation (unknown) (no (unknown) (unknown) Initial Vital (units ( unknown) date) Signs unknown) (unknown) (no (unknown) (unknown) Initial Vital (units ( unknown) date) Signs: unknown) (unknown) (no (unknown) (unknown) Instructions: DI (units (unknown) date) for Strep Throat unknown) (unknown) (no (unknown) (unknown) Integumentary/[place] (units (unknown) date) sts unknown) (unknown) (no (unknown) (unknown) [facility] (units (un known) date) unknown) (unknown) (no (unknown) (unknown) Lab Data (units (unkno wn) date) unknown) (unknown) (no (unknown) (unknown) Labs: (units (unkno wn) date) unknown) (unknown) (no (unknown) (unknown) [id number] (units (unk nown) date) unknown) (unknown) (no (unknown) (unknown) MDM - URI/Sore (units (unknown) date) Throat unknown) (unknown) (no (unknown) (unknown) MDM Narrative (units ( unknown) date) unknown) (unknown) (no (unknown) (unknown) Medical decision (units (unknown) date) making narrative: unknown) (unknown) (no (unknown) (unknown) Miscellaneous,Doct (units (unknown) date) or, MD [Primary unknown) Care Provider] - (unknown) (no (unknown) (unknown) Mode of arrival: (units (unknown) date) Ambulatory unknown) (unknown) (no (unknown) (unknown) Musculoskeletal (units (unknown) date) unknown) (unknown) (no (unknown) (unknown) Musculoskeletal: (units (unknown) date) Denies neck pain unknown) (unknown) (no (unknown) (unknown) NECK: Trachea (units ( unknown) date) midline. Non tender unknown) (unknown) (no (unknown) (unknown) NEURO: AOx3. (units (u nknown) date) unknown) (unknown) (no (unknown) (unknown) Narrative (units (unkn own) date) unknown) (unknown) (no (unknown) (unknown) Neurologic (units (unk nown) date) unknown) (unknown) (no (unknown) (unknown) Neurologic: Denies (units (unknown) date) dizziness, Denies unknown) frequent falls and Denies weakness (unknown) (no (unknown) (unknown) New (units (unkno wn) date) unknown) (unknown) (no (unknown) (unknown) No Known Drug (units ( unknown) date) Allergies Allergy unknown) Verified 03/27/22 12:49 (unknown) (no (unknown) (unknown) Ordered: (units (unkno wn) date) unknown) (unknown) (no (unknown) (unknown) Orders (units (unkno wn) date) unknown) (unknown) (no (unknown) (unknown) Oxygen Delivery (units (unknown) date) Method 03/27/22 unknown) 12:49 (unknown) (no (unknown) (unknown) Oxygen Delivery (units (unknown) date) Method Room Air unknown) Room Air (unknown) (no (unknown) (unknown) Patient (units (unkno wn) date) Disposition: Home unknown) (unknown) (no (unknown) (unknown) Patient History (units (unknown) date) unknown) (unknown) (no (unknown) (unknown) Patient is a (units (u nknown) date) 22-year-old female unknown) who presents to the emergency department for an (unknown) (no (unknown) (unknown) Patient: (units (unkno wn) date) Andie Whiteside unknown) MR#: (unknown) (no (unknown) (unknown) Prescriptions: (units (unknown) date) unknown) (unknown) (no (unknown) (unknown) Pulse Oximetry (units (unknown) date) 100 03/27/22 unknown) 12:49 (unknown) (no (unknown) (unknown) Pulse Oximetry 100 (units (unknown) date) 99 unknown) (unknown) (no (unknown) (unknown) Pulse Rate 108 H (units (unknown) date) 03/27/22 12:49 unknown) (unknown) (no (unknown) (unknown) Pulse Rate 108 H (units (unknown) date) 102 H unknown) (unknown) (no (unknown) (unknown) RESPIRATORY: Clear (units (unknown) date) to auscultation. unknown) Breath sounds equal bilaterally. No wheezes, (unknown) (no (unknown) (unknown) Rapid Strep A (units ( unknown) date) Positive unknown) (unknown) (no (unknown) (unknown) Rapid strep and (units (unknown) date) COVID swab ordered. unknown) 975 mg of Tylenol administered. Rapid strep (unknown) (no (unknown) (unknown) Rapid strep (units (unk ) date) performed in in the unknown) emergency department today resulted positive for (unknown) (no (unknown) (unknown) Referrals: (units (unk nown) date) unknown) (unknown) (no (unknown) (unknown) Related Data (units (u nknown) date) unknown) (unknown) (no (unknown) (unknown) Resource line at (units (unknown) date) [phone]. They unknown) will ask some questions about your medical (unknown) (no (unknown) (unknown) Respiratory (units (un known) date) unknown) (unknown) (no (unknown) (unknown) Respiratory Rate (units (unknown) date) 16 03/27/22 12:49 unknown) (unknown) (no (unknown) (unknown) Respiratory Rate (units (unknown) date) 16 18 unknown) (unknown) (no (unknown) (unknown) Respiratory: (units (u nknown) date) Denies chest unknown) congestion, Reports cough, Denies dyspnea and Denies (unknown) (no (unknown) (unknown) Review of Systems (units (unknown) date) unknown) (unknown) (no (unknown) (unknown) SARS-CoV-2 (PCR) (units (unknown) date) Negative unknown) (Negative) (unknown) (no (unknown) (unknown) SKIN: No rash or (units (unknown) date) erythema of visible unknown) areas (unknown) (no (unknown) (unknown) Signed By: (units (unk nown) date) unknown) (unknown) (no (unknown) (unknown) Skin/Breast: (units (u nknown) date) Denies pruritus, unknown) Denies erythema, Denies rash and Denies wounds (unknown) (no (unknown) (unknown) Smoking Status: (units (unknown) date) Current every day unknown) smoker (unknown) (no (unknown) (unknown) Smoking Status: (units (unknown) date) Current every day unknown) smoker (unknown) (no (unknown) (unknown) Social History (units (unknown) date) (Reviewed 03/27/22 unknown) @ 14:11 by Kaden Fuentes PA-C) (unknown) (no (unknown) (unknown) Source: patient (units (unknown) date) unknown) (unknown) (no (unknown) (unknown) Stated Complaint: (units (unknown) date) 'Strep or [place] or unknown) Something' (unknown) (no (unknown) (unknown) Substance Use (units ( unknown) date) Type: does not use unknown) (unknown) (no (unknown) (unknown) Temperature 99.9 (units (unknown) date) F H 03/27/22 12:49 unknown) (unknown) (no (unknown) (unknown) Temperature 99.9 F (units (unknown) date) H unknown) (unknown) (no (unknown) (unknown) Time Seen by (units (u nknown) date) Provider: 03/27/22 unknown) 13:58 (unknown) (no (unknown) (unknown) Visit Report (units (u nknown) date) Forms: Patient unknown) Portal/API (unknown) (no (unknown) (unknown) Vital Signs (units (un known) date) unknown) (unknown) (no (unknown) (unknown) Vital signs: (units (u nknown) date) unknown) (unknown) (no (unknown) (unknown) You were evaluated (units (unknown) date) in the emergency unknown) department today for sore throat and cough. (unknown) (no (unknown) (unknown) able to swallow. (units (unknown) date) unknown) (unknown) (no (unknown) (unknown) alcohol intake (units (unknown) date) frequency: unknown) holidays/special occasions only (unknown) (no (unknown) (unknown) and Denies (units (unk nown) date) orthopnea unknown) (unknown) (no (unknown) (unknown) and Denies urinary (units (unknown) date) urgency unknown) (unknown) (no (unknown) (unknown) appointment. Let (units (unknown) date) them know you were unknown) seen in the Emergency Department and that we (unknown) (no (unknown) (unknown) ask that you be (units (unknown) date) seen in follow up. unknown) We will electronically transmit a record of (unknown) (no (unknown) (unknown) been sent to your (units (unknown) date) preferred pharmacy. unknown) Ensure the complete the full course as (unknown) (no (unknown) (unknown) breathing, throat (units (unknown) date) swelling, or any unknown) other concerning symptoms. (unknown) (no (unknown) (unknown) chills, shortness (units (unknown) date) of breath, nausea, unknown) vomiting, diarrhea, constipation, abdominal (unknown) (no (unknown) (unknown) concerning (units (unkn own) date) symptoms, such as unknown) fever greater than 101 F, shaking chills, worsening (unknown) (no (unknown) (unknown) diarrhea, Denies (units (unknown) date) nausea and Denies unknown) vomiting (unknown) (no (unknown) (unknown) directed. Please (units (unknown) date) follow-up with unknown) primary care for further evaluation and (unknown) (no (unknown) (unknown) distress. (units (unkn own) date) unknown) (unknown) (no (unknown) (unknown) dyspnea on (units (unk nown) date) exertion unknown) (unknown) (no (unknown) (unknown) evaluation of sore (units (unknown) date) throat. Patient unknown) explains that she has been experiencing sore (unknown) (no (unknown) (unknown) falls, Denies (units ( unknown) date) lethargy and Denies unknown) weakness (unknown) (no (unknown) (unknown) further concerns (units (unknown) date) were voiced at this unknown) time. (unknown) (no (unknown) (unknown) has been reviewed. (units (unknown) date) I agree with unknown) assessment and plan. (unknown) (no (unknown) (unknown) history and help (units (unknown) date) get you set up with unknown) a doctor in the community. (unknown) (no (unknown) (unknown) icterus. No (units (un known) date) injection or unknown) drainage. (unknown) (no (unknown) (unknown) lightheadedness, (units (unknown) date) Denies unknown) palpitations, Denies dyspnea, Denies dyspnea on exertion (unknown) (no (unknown) (unknown) management. (units (un known) date) Tylenol and unknown) ibuprofen can be used for fever and pain management, (unknown) (no (unknown) (unknown) neck pain, Reports (units (unknown) date) sore throat and unknown) Denies tongue swelling (unknown) (no (unknown) (unknown) pain, dysuria, (units (unknown) date) hematuria, earache, unknown) rash, or any other concerning symptoms. No (unknown) (no (unknown) (unknown) pain, persistent (units (unknown) date) vomiting or other unknown) bothersome symptoms. (unknown) (no (unknown) (unknown) penicillin V (units (u nknown) date) potassium 500 mg unknown) 500 mg PO TID 10 days #30 tabs 03/27/22 (unknown) (no (unknown) (unknown) rales, or rhonchi. (units (unknown) date) unknown) (unknown) (no (unknown) (unknown) resulted positive. (units (unknown) date) unknown) (unknown) (no (unknown) (unknown) return to the (units ( unknown) date) emergency unknown) department if you experience worsening pain, difficulty (unknown) (no (unknown) (unknown) sick contact. She (units (unknown) date) explains that her unknown) throat pain is gradually worsening and (unknown) (no (unknown) (unknown) significant (units (un known) date) pharyngeal unknown) swelling, no abscess formation appreciated. Patient is (unknown) (no (unknown) (unknown) states she is (units ( unknown) date) having a difficult unknown) time swallowing. She denies any known fever, (unknown) (no (unknown) (unknown) strep pharyngitis. (units (unknown) date) I have provided unknown) you a prescription for penicillin which has (unknown) (no (unknown) (unknown) tablet (units (unkno wn) date) unknown) (unknown) (no (unknown) (unknown) throat with an (units (unknown) date) intermittent cough unknown) since Thursday. She denies any known recent (unknown) (no (unknown) (unknown) today's note if (units (unknown) date) your PCP is in our unknown) system (unknown) (no (unknown) (unknown) tonsillar pillar (units (unknown) date) erythema with unknown) exudate noticed on left tonsillar pillar. No (unknown) (no (unknown) (unknown) upper respiratory (units (unknown) date) infection. unknown) (unknown) (no (unknown) (unknown) viral pharyngitis (units (unknown) date) versus allergic unknown) rhinitis versus rhinosinusitis versus viral (unknown) (no (unknown) (unknown) warm saltwater (units ( unknown) date) gargles can help unknown) alleviate throat discomfort. Do not hesitate to Social History date description facility (no date) Smokes tobacco daily (finding) [facility] Vital Signs date measurement value units +0000 BMI BMI 17.4 kg/m2 +0000 BP_diastolic BP_diastolic 70 mm[H g] +0000 BP_systolic BP_systolic 117 mm[Hg] +0000 heart_rate heart_rate 102 /min +0000 height_metric height_metric 165.1 cm +0000 height_standard height_standard 65 in +0000 respiration_rate respiration_rate 18 /min +0000 temperature_metric temperature_metric 37.72 C +0000 temperature_standard temperature_standard 9 9.9 F +0000 weight_metric weight_metric 47.62 kg +0000 weight_standard weight_standard 104.98 lb
[2022-04-17] MEDS ORDERED: ACETAMINOPHEN 325 MG TABLET PO STA (22:18)
[2022-04-17] MEDS ORDERED: IBUPROFEN 600 MG TABLET PO STA (22:18)
[2022-04-17] MEDS ORDERED: methocarbamoL 500 MG TABLET PO STA (22:18)
[2022-04-17] MEDS ORDERED: LIDOCAINE PATCH 5% TOP STA (22:19)
--- NOTE | 2022-04-17 22:20 | ED Physician Documentation ---
History of Present Illness - Stated complaint Stated Complaint: UPPER RIB PX/SOA - Chief complaint Chief Complaint: Abd Pain - Additonal information Additional information: Patient is 22-year-old femalePresenting with back pain. Right mid upper back pain x2 days.Reports started after lifting heavy box at work. Denies specific trauma to the back. Reports pain with movement of her back or her upper extremities. States it is worse with deep inspiration. 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 : None HEENT: None Psych: ADD/ADHD Musculoskeletal: Chronic back pain Derm: None - Past Surgical History Past Surgical History: No - Present Medications Home Medications: Ambulatory Orders Medication Instructions Recorded Confirmed Acetaminophen 325 mg PO Q6H #30 tab 04/17/22 Ibuprofen [Motrin] 1 tablet PO Q8H PRN #30 tablet 04/17/22 Lidocaine Patch 5% [Lidoderm Patch] 1 patch TOP DAILY PRN #10 patch 04/17/22 methocarbamoL [Robaxin] 500 mg PO Q6H PRN #20 tablet 04/17/22 - Allergies Allergies/Adverse Reactions: Allergies Allergy/AdvReac Type Severity Reaction Status Date / Time No Known Drug Allergies Allergy Verified 04/17/22 21:41 - Social History Does the pt smoke?: Yes Smoking Status: Current every day smoker Does the pt drink ETOH?: No Does the pt have substance abuse?: Yes - Immunizations Immunizations are current?: Yes - POLST Patient has POLST: No PD ED PE NORMAL - General General: Alert and oriented X 3 - HEENT HEENT: Atraumatic - Neck Neck: Supple, no meningeal sign - Respiratory Respiratory: No respiratory distress - Extremities Extremities: No deformity, No edema. No: No tenderness to palpate (There is tenderness to palpation along the right rhomboid major. Pain is elicited with pec fly activity involving the axial skeleton.) Results - Vitals Vitals: Vital Signs - 24 hr 04/17/22 21:37 Temperature 36.3 C L Heart Rate 112 H Respiratory 14 Rate Blood Pressure 112/72 O2 Saturation 97 Oxygen O2 Source Room air PD MEDICAL DECISION MAKING - ED course Complexity details: d/w patient ED course: Patient is 22-year-old female presenting to the emergency department with mid upper back pain x2 days. Afebrile, hemodynamically stable. Physical exam is consistent with muscular injury to the right sided rhomboid major. No trauma to the back, no hemoptysis, no risk factors for pulmonary embolism. Given Robaxin, Motrin, Tylenol, Lidoderm patch. Will discharge on ongoing course of same. Encourage careful follow-up with primary care and to return to the emergency department as needed. Departure - Departure Disposition: 01 Home, Self Care Clinical Impression: Back strain Instructions: ED Spasm Back No Trauma Prescriptions: Acetaminophen 325 mg PO Q6H #30 tab Lidocaine Patch 5% [Lidoderm Patch] 1 patch TOP DAILY PRN #10 patch PRN Reason: pain Ibuprofen [Motrin] 1 tablet PO Q8H PRN #30 tablet PRN Reason: PAIN &/OR FEVER methocarbamoL [Robaxin] 500 mg PO Q6H PRN #20 tablet PRN Reason: muscle spasm Comments: Thank you for allowing us to care for you today at [facility]. Your prescriptions were sent electronically to [facility] in [place]. Your physical exam is consistent with an injury to your right rhomboid major. This will take a few days to heal. As we discussed the most important things to joiner helper in the healing of this injury include staying well-hydrated at home and gentle activity as tolerated. Complete inactivity can make pain such as which you are experiencing worse. Pain associated with a pulled muscle in your back is best treated by what is known as a multimodal approach. To this end I will be prescribing you multiple different painOral and topical pain medications as well as a muscle relaxer. Please do be aware that the muscle relaxer can cause sedation and should not be used if you are operating a motor vehicle, using heavy machinery or you are the sole pen rider of young children. Please do make a follow-up appoint with your primary care doctor soon as possible for medical recheck. In addition to the above you may find alternating hot and cold or hot packs applied to your back or soaks in a warm tub is very beneficial for aid in your symptoms. If it anytime you have any new or worsening symptoms please do not hesitate to return to the emergency department. Forms: Activity restrictions
== END 2022-04-17 22:29 | disposition home or self-care (01) ==
LOC: ED 21:27
DX: S29.012A Strain of muscle and tendon of back wall of thorax, initial encounter (principal); X58.XXXA Exposure to other specified factors, initial encounter; F17.200 Nicotine dependence, unspecified, uncomplicated
CPT/HCPCS: 99281; 99284; A9270

== ENCOUNTER 2023-04-22 15:12 | Outpatient (CLI) | payer MEDICAID | END 2023-04-22 23:59 | disposition left against medical advice (07) | LOC: EMS 15:12 | DX: S01.21XA Laceration without foreign body of nose, initial encounter (principal); S05.92XA Unspecified injury of left eye and orbit, initial encounter; Y04.2XXA Assault by strike against or bumped into by another person, initial encounter ==

== ENCOUNTER 2023-04-22 16:15 | Emergency (ER) | payer MEDICAID ==
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
[2023-04-22] MEDS ORDERED: HYDROmorphone 1 MG/ML CARPUJECT IM STA (16:30)
[2023-04-22] MEDS ORDERED: KETOROLAC 60 MG/2 ML VIAL IM STA (16:30)
[2023-04-22] MEDS ORDERED: TETANUS/DIPHTHERIA/PERTUSSIS 0.5 ML SYRINGE IM ONE (16:31)
--- NOTE | 2023-04-22 17:20 | CT Report ---
PROCEDURE: HEAD WO INDICATIONS: facial/head inj TECHNIQUE: Noncontrast 4.5 mm thick angled axial sections acquired from the foramen magnum to the vertex. For r adiation dose reduction, the following was used: automated exposure control, adjustment of mA and/or kV according to patient size. COMPARISON: 05/06/2021 FINDINGS: Image quality: Excellent. CSF spaces: Basal cisterns are patent. No extra-axial fluid collections. Ventricles are normal in size and shape. Brain: No midline shift. No intracranial masses or hemorrhage. Walden-white matter interface is norm al. Skull and face: Calvarium and visualized facial bones are intact, without suspicious lesions. Sinuses: Visualized sinuses and mastoids are clear. IMPRESSION: No acute intracranial process. Reviewed by: Larry Quach MD on 04/22/2023 5:19 PM PDT Approved by: Larry Quach MD on 04/22/2023 5:19 PM PDT Station ID: [id number]
[2023-04-22] MEDS ORDERED: OXYMETAZOLINE HCL 100 SPRAYS BOTTLE NAS STA (17:22)
--- NOTE | 2023-04-22 17:25 | CT Report ---
PROCEDURE: MAXILLOFACIAL WO INDICATIONS: facial/head inj TECHNIQUE: Noncontrast 1.5 mm thick axial images acquired from the mandible through the frontal sinuses, with co fer and sagittal reformatting. For radiation dose reduction, the following was used: automated ex posure control, adjustment of mA and/or kV according to patient size. COMPARISON: CT head from the same date. FINDINGS: Image quality: Excellent. Bones and teeth: Orbital harris are intact. There is a displaced comminuted fracture of the right max illary sinus involving the anterior wall and lateral wall. There is associated soft tissue in the sin us. There is no left orbital floor fracture or zygomatic arch fracture. There is a nasal bone fractur e, nondisplaced. There is poor dentition with multiple dental caries. No other fractures or dislocati ons identified. No mandibular fractures. Visualized portions of the mandible demonstrate no fractures or subluxation. Zygomatic arches are intact. Pterygoid plates are intact. Visualized portions of the skull base and auditory canals are intact. Sinuses: Paranasal sinuses are aerated, without fluid levels, mucosal thickening, or mucoceles. Mas toid air cells are aerated. Soft tissues: There is swelling involving the soft tissues overlying the left maxillary sinus, infrao rbital region. No enlarged lymph nodes. No soft tissue lacerations or debris. Vascular: Visualized vascular structures appear normal in the absence of contrast. Bony vascular fo ramina and canals are intact. IMPRESSION: 1. Fractures involving the anterior wall and lateral wall of the left maxillary sinus with associated soft tissue in the maxillary sinus. 2. Nondisplaced nasal bone fracture. 3. Poor dentition with multiple dental caries. 4. Soft tissue swelling involving the left cheek. Reviewed by: Larry Quach MD on 04/22/2023 5:24 PM PDT Approved by: Larry Quach MD on 04/22/2023 5:24 PM PDT Station ID: [id number]
[2023-04-22] MEDS ORDERED: HYDROcod/ACETAM 5/325 MG TABLET PO STA (18:26)
[2023-04-22 18:33] VITALS: BP 104/64
== END 2023-04-22 18:43 | disposition home or self-care (01) ==
LOC: ED 16:15
DX: S02.401A Maxillary fracture, unspecified side, initial encounter for closed fracture (principal); S02.2XXA Fracture of nasal bones, initial encounter for closed fracture; Y04.2XXA Assault by strike against or bumped into by another person, initial encounter; Y93.9 Activity, unspecified; F17.200 Nicotine dependence, unspecified, uncomplicated
CPT/HCPCS: 70450; 70486; 90471; 90715; 96372; 99284; A9270; J1170

== ENCOUNTER 2023-09-16 05:07 | Emergency (ER) | payer MEDICAID ==
--- NOTE | 2023-09-16 05:29 | ED Physician Documentation ---
PD HPI HEENT - Stated complaint Stated Complaint: SORE THROAT - History obtained from History obtained from: Patient - Additional information Additional information: HPI from patient. Patient complains of sore throat, odynophagia, right tender cervical lymphadenopathy. Symptoms began 5 days ago. She says she has also been having fevers to a Tmax of 101.2. This is the 36th [facility] ED visit on [facility] records for this patient. 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 HEENT: None Psych: ADD/ADHD Musculoskeletal: Chronic back pain Derm: None - Past Surgical History Past Surgical History: No - Present Medications Home Medications: Ambulatory Orders Medication Instructions Recorded Confirmed HYDROcod/ACETAM 5/325 [[place] 5/325] 1 - 2 tab PO Q6H PRN #15 tablet 04/22/23 - Allergies Allergies/Adverse Reactions: Allergies Allergy/AdvReac Type Severity Reaction Status Date / Time No Known Drug Allergies Allergy Verified 09/16/23 05:30 - Social History Does the pt smoke?: Yes Smoking Status: Current every day smoker Does the pt drink ETOH?: No Does the pt have substance abuse?: Yes - Immunizations Immunizations are current?: Yes - POLST Patient has POLST: No PD ED PE NORMAL - Vitals Vital signs reviewed: Yes - General General: Alert and oriented X 3, No acute distress, Well developed/nourished PD ED PE EXPANDED - HEENT HEENT: Pharyngeal erythema, Swollen tonsils. No: Tonsillar exudate - Neck Neck: Adenopathy (right anterior swollen and tender lymph node without fluctuance or erythema) Results - Vitals Vitals: Vital Signs - 24 hr 09/16/23 09/16/23 09/16/23 05:28 07:05 07:50 Temperature 37.5 C Heart Rate 135 H 132 H 108 H Respiratory 18 16 16 Rate Blood Pressure 110/78 127/67 125/65 O2 Saturation 98 93 98 Oxygen O2 Source Room air - Labs Labs: Laboratory Tests 09/16/23 09/16/23 05:48 05:48 Nasal Adenovirus (PCR) NOT DETECTED Nasal B. parapertussis DNA (PCR) NOT DETECTED Nasal Coronavir 229E PCR NOT DETECTED Nasal Coronavir HKU1 PCR NOT DETECTED Nasal Coronavir NL63 PCR NOT DETECTED Nasal Coronavir OC43 PCR NOT DETECTED Nasal Enterovir/Rhinovir PCR NOT DETECTED Nasal Influenza B PCR NOT DETECTED Nasal Influenza A PCR NOT DETECTED Nasal Parainfluen 1 PCR NOT DETECTED Nasal Parainfluen 2 PCR NOT DETECTED Nasal Parainfluen 3 PCR NOT DETECTED Nasal Parainfluen 4 PCR NOT DETECTED Nasal RSV (PCR) NOT DETECTED Nasal B.pertussis DNA PCR NOT DETECTED Nasal C.pneumoniae (PCR) NOT DETECTED Gio Human Metapneumo PCR NOT DETECTED Nasal M.pneumoniae (PCR) NOT DETECTED Nasal SARS-CoV-2 (PCR) NOT DETECTED Group A Strep Rapid Negative PD Medical Decision Making - ED course Complexity details: reviewed results, re-evaluated patient, considered differential, d/w patient ED course: HPI consistent with pharyngitis as is the physical exam. Rapid strep is negative and the respiratory PCR panel is negative for the viruses tested. I discussed these results with the patient. She is given 10 mg p.o. Decadron and discharged. Return precautions are reviewed. Departure - Departure Disposition: Home, Self Care Clinical Impression: Pharyngitis Condition: Good Instructions: ED Pharyngitis Viral Report Pending Comments: The rapid strep test was negative, and the nasal swab was negative for the number of viruses that are tested on our viral panel including influenza, covid, and RSV. The cause of your symptoms is not apparent at this time, but a viral cause is still the most likely explanation. As we discussed, the lab will next do a culture on the throat swab. This is a significantly more accurate test in detecting strep than the rapid test. If this shows that you do have strep, you will receive a phone call from this emergency department and a prescription for an antibiotic can be submitted to your pharmacy of choice. You will not be contacted if the culture is negative. It typically takes 1 or 2 days for the culture results to be available. Forms: PCP List Discharge Date/Time: 09/16/23 07:51
[2023-09-16] MEDS ORDERED: IBUPROFEN 600 MG TABLET PO STA (05:50)
[2023-09-16 06:43] LABS: RAPID STREP SCREEN Negative (Negative)
[2023-09-16 07:02] LABS: B. PARAPERTUSSIS- RESP PCR PAN NOT DETECTED; B. PERTUSSIS- RESP PCR PANEL NOT DETECTED; C. PNEUMONIAE- RESP PCR PANEL NOT DETECTED; CORONAVIRUS 229E-RESP PCR NOT DETECTED; CORONAVIRUS HKU1-RESP PCR NOT DETECTED; CORONAVIRUS NL63-RESP PCR NOT DETECTED; CORONAVIRUS OC43-RESP PCR NOT DETECTED; HUMAN METAPNEUMOVIRUS NOT DETECTED; INFLUENZA A- RESP PCR PANEL NOT DETECTED; INFLUENZA B - RESP PCR PANEL NOT DETECTED; M. PNEUMONIAE- RESP PCR PANEL NOT DETECTED; PARAINFLUENZA VIRUS 1 NOT DETECTED; PARAINFLUENZA VIRUS 2 NOT DETECTED; PARAINFLUENZA VIRUS 3 NOT DETECTED; PARAINFLUENZA VIRUS 4 NOT DETECTED; RHINOVIRUS/ENTEROVIRUS NOT DETECTED; RSV- RESP PCR PANEL NOT DETECTED; SARS-CoV-2 -RESP PCR PANEL NOT DETECTED
[2023-09-16] MEDS ORDERED: DEXAMETHASONE 10 MG/ML VIAL PO STA (07:40)
[2023-09-16] MEDS ORDERED: CHERRY SYRUP 10 ML UDC PO ONE (07:40)
[2023-09-16 07:58] VITALS: BP 125/65; O2SAT 98
== END 2023-09-16 07:51 | disposition home or self-care (01) ==
LOC: ED 05:07
DX: J02.9 Acute pharyngitis, unspecified (principal); F17.200 Nicotine dependence, unspecified, uncomplicated
CPT/HCPCS: 87070; 87430; 87633; 99283; A9270

== ENCOUNTER 2024-04-01 13:01 | Outpatient (CLI) | payer MEDICAID | END 2024-04-01 23:59 | disposition critical access hospital (66) | LOC: EMS 13:01 | DX: R11.2 Nausea with vomiting, unspecified (principal) | CPT/HCPCS: A0425; A0427; A0999 ==

== ENCOUNTER 2024-04-01 13:23 | Emergency (ER) | payer MEDICAID ==
[2024-04-01 14:35] VITALS: O2SAT 100
--- NOTE | 2024-04-01 14:35 | ED Physician Documentation ---
History of Present Illness - Stated complaint Stated Complaint: N/V - Chief complaint Chief Complaint: Abd Pain - Additonal information Additional information: 24-year-old female with no pertinent past medical history presents emergency department via EMS for concerns from patient's mother from the fentanyl withdrawal. Patient states that she does not want to be here she wants to discharge she denies any abdominal pain she does endorse some nausea and vomiting and has been having couple episodes of diarrhea. She is asked if she would like to speak with social work to withdrawal from fentanyl and go to rehab and patient declined saying that she wants to discharge home does not have interest in discontinuing fentanyl use at this point in time. 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 HEENT: None Psych: ADD/ADHD Musculoskeletal: Chronic back pain Derm: None - Past Surgical History Past Surgical History: No - Present Medications Home Medications: Ambulatory Orders Medication Instructions Recorded Confirmed HYDROcod/ACETAM 5/325 [[place] 5/325] 1 - 2 tab PO Q6H PRN #15 tablet 04/22/23 - Allergies Allergies/Adverse Reactions: Allergies Allergy/AdvReac Type Severity Reaction Status Date / Time No Known Drug Allergies Allergy Verified 04/01/24 13:33 - Social History Does the pt smoke?: Yes Smoking Status: Current every day smoker Does the pt drink ETOH?: No Does the pt have substance abuse?: Yes - Immunizations Immunizations are current?: Yes - POLST Patient has POLST: No PD ED PE NORMAL - Vitals Vital signs reviewed: Yes - General General: Alert and oriented X 3, No acute distress, Well developed/nourished - HEENT HEENT: Atraumatic - Cardiac Cardiac: RRR - Derm Derm: Normal color, Warm and dry, No rash Results - Vitals Vitals: Vital Signs - 24 hr 04/01/24 04/01/24 04/01/24 13:30 14:33 14:57 Temperature 36.7 C Heart Rate 85 85 94 Respiratory 16 18 18 Rate Blood Pressure 142/101 H 120/85 H 119/67 O2 Saturation 99 100 100 Oxygen O2 Source Room air PD Medical Decision Making - ED course ED course: 24-year-old female presents emergency department via EMS for concerns of fentanyl withdrawal. Last fentanyl use was a couple days ago per EMS patient does not care to disclose when her last fentanyl use was. She was given a liter of IV fluids via EMS she says that she does not want to speak with social work and would not like any resources with coming off fentanyl declines need for Suboxone. She does request some Zofran she is given PO Zofran here in the emergency department And nausea much improved. At this point in time if patient does not want any emergency medicine workup and she does not want to be here for fentanyl abuse or fentanyl withdrawal she is decisional and safe for discharge. Departure - Departure Disposition: 01 Home, Self Care Clinical Impression: Fentanyl dependence Instructions: Addiction Drug Abuse Tx, ED Drug Abuse General Comments: Thank you for trusting us with your care. We have given you some Zofran as well as some IV fluids in the emergency department to help with your nausea. We offered you to meet with social work or to discuss the possibility of going to a rehab center but you declined at this point in time and did not say that he wanted to come off fentanyl. If you change your mind and would like to pursue coming off fentanyl please come back to the emergency department we can get you in touch with social work to help you with accessing the appropriate resources. Forms: PCP List Discharge Date/Time: 04/01/24 14:57
[2024-04-01] MEDS: ONDANSETRON ODT 4 MG TABLET TL STA (14:41)
[2024-04-01 15:13] VITALS: BP 119/67
== END 2024-04-01 14:57 | disposition home or self-care (01) ==
LOC: EDUNIT# → ED 13:23
DX: F11.20 Opioid dependence, uncomplicated (principal); F17.200 Nicotine dependence, unspecified, uncomplicated
CPT/HCPCS: 99283; 99284; Q0162